=== PATIENT | male | born 1955 | race Caucasian/White ===

== ENCOUNTER 2017-04-03 14:51 | Emergency (ER) | payer MEDICAID, OTHER ==
[~2017-04-03] VITALS: Ht 167.6 cm; Wt 83.8 kg
[2017-04-03 15:06] VITALS: Ht 167.6 cm; Wt 83.8 kg
[2017-04-03] MEDS ORDERED: ONDANSETRON 4 MG INJ IV STA (17:32)
[2017-04-03] MEDS ORDERED: morphine 4 MG/ML VIAL IV STA (17:32)
[2017-04-03 18:45] VITALS: BP 159/71; PULSE 81; RESP 18
[2017-04-03] MEDS ORDERED: LIDOCAINE/MYLANTA 40 ML BTL PO ONE (19:00)
[2017-04-03] MEDS ORDERED: PANTOPRAZOLE 40 MG INJ IV ONE (19:00)
--- NOTE | 2017-04-03 19:09 | RADRPT ---
PROCEDURE: CT Abdomen and Pelvis without contrast. CLINICAL INDICATION: Abdominal pelvic pain. RLQ pain. TECHNIQUE: CT scan of the abdomen and pelvis without contrast was performed on a multi-detector hi gh-resolution CT scanner. The patient was scanned without IV contrast. Coronal and sagittal reformat bharath images were obtained from the axial source images. CTDI equals 15.44 mGy, and DLP equals 870.64 mGy-cm. One or more of the following dose reduction techniques were used: - Automated exposure control. - Adjustment of the mA and/or kV according to patient size. - Use of iterative reconstruction technique. COMPARISON: None. FINDINGS: Lower thorax: Mild scattered scarring along the periphery of the lung bases. Moderate retrocardiac h iatal hernia. Liver: Diffuse fatty infiltration of the liver. No focal mass. Biliary: Normal gallbladder. No biliary dilatation. Pancreas: Mild edema throughout the pancreas consistent with mild pancreatitis. No focal fluid colle ction or abscess is identified. Spleen: Normal. Adrenal Glands: Normal. Genitourinary: Normal. Gastrointestinal: Normal. Lymph nodes: Normal. Vascular: Atherosclerotic vascular calcifications. Peritoneum/mesentery: Normal. No free fluid or free air. Reproductive organs: Significantly enlarged prostate gland impressing upon the base of the bladder. Musculoskeletal: Normal. IMPRESSION: 1. Findings consistent with mild diffuse pancreatitis. 2. No focal fluid collection or abscess is present. 3. Enlarged prostate gland. Correlate with PSA level. 4. Diffuse fatty infiltration of the liver. 5. Moderate retrocardiac hiatal hernia. 6. Scattered benign chronic senescent changes. RPTAT: HMJB .Kem Anne MD, Date Time Electronically viewed and signed by .Kem Anne MD, MD on 04/03/2017 19:09 .B/
[2017-04-03] MEDS ORDERED: HYDR-902 PO (19:32)
[2017-04-03] MEDS ORDERED: ONDA4TAB14 PO (19:32)
--- NOTE | 2017-04-03 19:38 | ERD ---
ER Documentation Chief Complaint Chief Complaint RLQ PAIN W/VOMITTING SINCE AM, SENT BY CLINIC HPI Patient is a 61-year-old male with hypertension who presents with abdominal pain. The patient is right lower quadrant abdominal pain which started today. The pain comes and goes. The patient went to a clinic who sent him to the emergency department for further workup. He has nausea and vomiting. He has had subjective fevers. He has had no treatment as of yet. The pain is sharp in nature. His primary doctor is Dr. Gong. ROS All systems reviewed and are negative except as per history of present illness. Medications Home Meds Active Scripts Ondansetron (Ondansetron Odt) 4 Mg Tab.rapdis, 4 MG PO Q6H Y for NAUSEA AND/OR VOMITING, #10 TAB Prov:JOSR GREEN MD 04/03/17 Hydrocodone/Acetaminophen (B[place]mer 10-325 Tablet) 1 Each Tablet, 1 TAB PO Q6H Y for PAIN, #7 TAB Prov:JOSR GREEN MD 04/03/17 Allergies Allergies: Coded Allergies: No Known Allergy (Unverified , 04/03/17) PMhx/Soc Positive for hypertension FmHx Family History: diabetes Physical Exam Vitals Vital Signs Date Time Temp Pulse Resp B/P Pulse Ox O2 Delivery O2 Flow Rate FiO2 04/03/17 18:45 81 18 159/71 100 Room Air 04/03/17 15:06 97.8 68 20 183/86 98 Physical Exam Const: Moderate distress secondary to abdominal pain Head: Atraumatic Eyes: Normal Conjunctiva ENT: Normal External Ears, Nose and Mouth. Neck: Full range of motion..~ No meningismus. Resp: Clear to auscultation bilaterally Cardio: Regular rate and rhythm, no murmurs Abd: Soft, right lower quadrant tenderness to palpation without rebound or guarding Skin: No petechiae or rashes Back: No midline or flank tenderness Ext: No cyanosis, or edema Neur: Awake and alert Psych: Normal Mood and Affect Result Diagram: 04/03/175 04/03/17 1745 Results 24 hrs Laboratory Tests Test 04/03/17 17:45 White Blood Count 14.410^3/ul Red Blood Count 5.0410^6/ul Hemoglobin 15.2g/dl Hematocrit 45.4% Mean Corpuscular Volume 90.1fl Mean Corpuscular Hemoglobin 30.2pg Mean Corpuscular Hemoglobin Concent 33.5g/dl Red Cell Distribution Width 12.9% Platelet Count 49974^3/UL Mean Platelet Volume 10.8fl Neutrophils % 87.4% Lymphocytes % 9.2% Monocytes % 2.8% Eosinophils % 0.0% Basophils % 0.2% Nucleated Red Blood Cells % 0.0/100WBC Neutrophils # 12.610^3/ul Lymphocytes # 1.310^3/ul Monocytes # 0.410^3/ul Eosinophils # 0.010^3/ul Basophils # 0.010^3/ul Nucleated Red Blood Cells # 0.010^3/ul Prothrombin Time 12.3Sec Prothrombin Time Ratio 1.0 INR International Normalized Ratio 0.91 Activated Partial Thromboplast Time 32.9Sec Urine Color YELLOW Urine Clarity TURBID Urine pH 5.0 Urine Specific [place] 1.026 Urine Ketones NEGATIVEmg/dL Urine Nitrite NEGATIVEmg/dL Urine Bilirubin NEGATIVEmg/dL Urine Urobilinogen 1+mg/dL Urine Leukocyte Esterase NEGATIVELeu/ul Urine Microscopic RBC 4/HPF Urine Microscopic WBC 3/HPF Urine Mucus MANY/HPF Urine Hemoglobin 1+mg/dL Urine Glucose NEGATIVEmg/dL Urine Total Protein 1+mg/dl Sodium Level 141mmol/L Potassium Level 4.4mmol/L Chloride Level 101mmol/L Carbon Dioxide Level 28mmol/L Anion Gap 16 Blood Urea Nitrogen 14mg/dl Creatinine 0.78mg/dl Glucose Level 158mg/dl Calcium Level 9.5mg/dl Total Bilirubin 0.4mg/dl Direct Bilirubin 0.00mg/dl Indirect Bilirubin 0.4mg/dl Aspartate Amino Transf (AST/SGOT) 28IU/L Alanine Aminotransferase (ALT/SGPT) 44IU/L Alkaline Phosphatase 71IU/L Troponin I < 0.012ng/ml Total Protein 8.2g/dl Albumin 4.8g/dl Globulin 3.40g/dl Albumin/Globulin Ratio 1.41 Lipase 99U/L Current Medications Medications (Trade) Dose Ordered Sig/Valerie Route PRN Reason Start Time Stop Time Status Last Admin Dose Admin Morphine Sulfate (morphine) 4 mg ONCE STAT IV 04/03/17 17:32 04/03/17 17:34 DC 04/03/17 18:10 Ondansetron HCl (Zofran Inj) 4 mg ONCE STAT IV 04/03/17 17:32 04/03/17 17:34 DC 04/03/17 18:10 Miscellaneous Medication (Gi Cocktail (2)) 40 ml ONCE ONCE PO 04/03/17 19:00 04/03/17 19:01 DC 04/03/17 19:15 Pantoprazole (Protonix Iv) 40 mg ONCE ONCE IV 04/03/17 19:00 04/03/17 19:01 DC 04/03/17 19:15 Procedures/MDM Smoking Cessation Therapy: Pt. was lectured for greater than 3 minutes on the health risks of continued smoking and the benefits of cessation. PROCEDURE: CT Abdomen and Pelvis without contrast. CLINICAL INDICATION: Abdominal pelvic pain. RLQ pain. TECHNIQUE: CT scan of the abdomen and pelvis without contrast was performed on a multi-detector high-resolution CT scanner. The patient was scanned without IV contrast. Coronal and sagittal reformatted images were obtained from the axial source images. CTDI equals 15.44 mGy, and DLP equals 870.64 mGy-cm. One or more of the following dose reduction techniques were used: - Automated exposure control. - Adjustment of the mA and/or kV according to patient size. - Use of iterative reconstruction technique. COMPARISON: None. FINDINGS: Lower thorax: Mild scattered scarring along the periphery of the lung bases. Moderate retrocardiac hiatal hernia. Liver: Diffuse fatty infiltration of the liver. No focal mass. Biliary: Normal gallbladder. No biliary dilatation. Pancreas: Mild edema throughout the pancreas consistent with mild pancreatitis. No focal fluid collection or abscess is identified. Spleen: Normal. Adrenal Glands: Normal. Genitourinary: Normal. Gastrointestinal: Normal. Lymph nodes: Normal. Vascular: Atherosclerotic vascular calcifications. Peritoneum/mesentery: Normal. No free fluid or free air. Reproductive organs: Significantly enlarged prostate gland impressing upon the base of the bladder. Musculoskeletal: Normal. IMPRESSION: 1. Findings consistent with mild diffuse pancreatitis. 2. No focal fluid collection or abscess is present. 3. Enlarged prostate gland. Correlate with PSA level. 4. Diffuse fatty infiltration of the liver. 5. Moderate retrocardiac hiatal hernia. 6. Scattered benign chronic senescent changes. RPTAT: HMJB .Kem Anne MD, MD Date Time Electronically viewed and signed by .Kem Anne MD, on 04/03/2017 19:09 Patient is a 61-year-old male who presents with abdominal pain. He had a workup which included laboratory studies, urinalysis, and CT scan of the abdomen and pelvis. He had a mild elevation of his white blood cell count. CT scan however showed no sign of appendicitis or bowel obstruction. LFTs and lipase were normal. At this point I doubt appendicitis, cholecystitis, pancreatitis, or bowel obstruction. I believe outpatient management is appropriate but the patient will need close follow-up with his primary doctor Dr. Gong within 24 hours. He will be given a prescription for Bessemer and Zofran for symptomatically relief. Departure Diagnosis: Primary Impression: Abdominal pain Abdominal location: right lower quadrant Qualified Code: R10.31 - Right lower quadrant abdominal pain Condition: Fair Patient Instructions: Abdominal Pain Additional Instructions: Visite a foster naldo louise para un EXAMEN.Regrese a estas instalaciones si no se mejora annabel esperbamos o annabel carlos rices. JOSR GREEN MD Apr 03, 2017 19:38
[2017-04-04] MEDS ORDERED: LISI20TA11 PO (20:17)
[2017-04-04] MEDS ORDERED: NAPR-688 PO (20:17)
[2017-04-04] MEDS ORDERED: ASPI-535 PO (20:17)
[2017-04-04] MEDS ORDERED: LORA10TA3 PO (20:18)
[2017-04-04] MEDS ORDERED: ACET-141 PO (20:19)
== END 2017-04-03 19:58 | disposition home or self-care (01) ==
LOC: E/R 14:51
DX: R10.31 Right lower quadrant pain (principal); I10 Essential (primary) hypertension
CPT/HCPCS: 36415; 74176; 80053; 81001; 83690; 84484; 85025; 85610; 85730; 93005; 96374; 96375; C9113; J2270; J2405; Z7502; Z7610

== ENCOUNTER 2017-04-04 15:52 | Inpatient (IN) | payer MEDICAID ==
[~2017-04-04] VITALS: Ht 170.2 cm; Wt 84.5 kg
[~2017-04-04 15:52] MED LIST: HYDR-902 PO; ONDA4TAB14 PO
[2017-04-04] MEDS ORDERED: SODIUM CHLORIDE 0.9% 1L BAG IV* STA (16:23)
[2017-04-04] MEDS ORDERED: HYDROmorphONE 1 MG/ML SYG IV STA ×2 (16:23→19:55)
[2017-04-04] MEDS ORDERED: ONDANSETRON 4 MG INJ IV STA (16:23)
[2017-04-04] MEDS ORDERED: PIPER-TAZO 3.375 GM IV (PMX) 50 ML IVPB STA (16:23)
[2017-04-04] MEDS ORDERED: VANCOMYCIN 1 GM (PMX) 250 ML IVPB ONE (16:30)
[2017-04-04 16:43] LABS: ABNORMAL IP MESSAGE 1; BASOPHILS % 0.2 % (0.0-2.0); HEMATOCRIT 47.9 % (42.0-52.0); HEMOGLOBIN 16.8 g/dl (14.0-18.0); LYMPHOCYTES # 2.3 10^3/ul (0.8-2.9); LYMPHOCYTES % 12.7 % (15.0-51.0); MEAN CORPUSCULAR HEMOGLOBIN 31.6 pg (29.0-33.0); MEAN CORPUSCULAR HGB CONC 35.1 g/dl (32.0-37.0); MEAN CORPUSCULAR VOLUME 90.2 fl (82.0-101.0); MONOCYTE # 1.5 10^3/ul (0.3-0.9); MONOCYTES % 8.3 % (0.0-11.0); NEUTROPHIL # 14.3 10^3/ul (1.6-7.5); NEUTROPHILS % 78.3 % (39.0-77.0); PLATELET COUNT 255 10^3/UL (140-415); POSITIVE DIFF @See below; RED BLOOD COUNT 5.31 10^6/ul (4.70-6.10); WHITE BLOOD COUNT 18.3 10^3/ul (4.8-10.8)
[2017-04-04 17:01] LABS: INR 1.01; PARTIAL THROMBOPLASTIN TIME 31.9 Sec (25.0-35.0); PROTIME 13.3 Sec (12.2-14.2)
[2017-04-04 17:09] LABS: ALANINE AMINOTRANSFERASE 40 IU/L (13-69); ALBUMIN 4.8 g/dl (3.3-4.9); ALBUMIN/GLOBULIN RATIO 1.33; ALKALINE PHOSPHATASE 80 IU/L (42-121); ANION GAP 20 (8-16); ASPARTATE AMINO TRANSFERASE 24 IU/L (15-46); BILIRUBIN,INDIRECT 0.8 mg/dl (0-1.1); BILIRUBIN,TOTAL 0.8 mg/dl (0.2-1.3); BLOOD UREA NITROGEN 16 mg/dl (7-20); CALCIUM 9.4 mg/dl (8.4-10.2); CARBON DIOXIDE 25 mmol/L (21-31); CHLORIDE 101 mmol/L (97-110); CREATININE 1.33 mg/dl (0.61-1.24); GLUCOSE 181 mg/dl (70-220); POTASSIUM 4.1 mmol/L (3.5-5.1); SODIUM 142 mmol/L (135-144); TOTAL PROTEIN 8.4 g/dl (6.1-8.1)
[2017-04-04 17:21] LABS: TROPONIN-I < 0.012 ng/ml (0.00-0.12)
--- NOTE | 2017-04-04 17:33 | RADRPT ---
PROCEDURE: XR Chest. CLINICAL INDICATION: Shortness of breath. TECHNIQUE: A single portable view of the chest was obtained. COMPARISON: None FINDINGS: The cardiomediastinal silhouette is within normal limits. The right hemidiaphragm is elevated with r ight basilar atelectasis. The remaining lungs and pleural spaces are clear. The soft tissues and os seous structures are unremarkable. IMPRESSION: Elevated right hemidiaphragm with right basilar atelectasis. RPTAT: HPNM Physician Gina Date Time Electronically viewed and signed by Emir Ji Physician on 04/04/2017 17:32 /
[2017-04-04] MEDS ORDERED: SOD CHLORIDE 0.9% 100 ML ONE (18:04)
[2017-04-04] MEDS ORDERED: IODIXANOL LOCM 100 ML BTL ONE (18:05)
--- NOTE | 2017-04-04 19:15 | RADRPT ---
PROCEDURE: CT of the abdomen and pelvis CLINICAL INDICATION: Abdominal pain TECHNIQUE: The study was performed utilizing a GE Xylopeed 64-slice multidetector CT scanner. Dir ect spiral axial sections were obtained through the abdomen and pelvis with intravenous contrast. Af ter administration of 100cc of Visipaque 320, postcontrast images were obtained. Coronal and sagitt al reformatted images were performed. The CTDI vol is 14.36 mGy and the DLP is 914.59 mGy-cm. The i mages were reviewed on a PACS workstation. One or more of the following dose reduction techniques were used: Automated exposure control. Adjustment of the mA and/or kV according to patient size. Use of iterative reconstruction technique. COMPARISON: 04/03/2017 FINDINGS: CT abdomen: 9 atelectasis in the lung bases is seen. The remaining lung bases are clear. The heart is not enlarged. No pericardial effusion is seen. The liver is normal in size and contour. Fatty infiltration of the liver is seen. A 5 mm low attenua tion lesion left lobe is seen which is too small to characterize but may represent a cyst. No other focal liver lesions or intrahepatic biliary dilatation is seen. The gallbladder is normal. No common bile duct dilatation is seen. The spleen, pancreas, and adrenal glands are unremarkable in appeara nce. The kidneys are normal in size and contour enhance normally. No evidence of hydronephrosis or nephrolithiasis is seen. A moderate size hiatal hernia is again seen. The remainder of the stomach is otherwise unremarkable. Mild to mildly distended fluid filled small bowel in the left upper quadrant left lower quadrant i s seen with mucosal fold thickening. Descending colon diverticulosis without evidence of diverticuli tis. The remainder of the small and large bowel are otherwise unremarkable in course and caliber. T he appendix is enlarged and fluid-filled. Inflammatory changes in the periappendiceal region is seen . In addition, free fluid in the right paracolic gutter is seen. No enlarged lymph nodes are seen. T he aorta is normal in caliber. CT pelvis: No pelvic mass, adenopathy, or focal fluid collection is seen. There is a small amount of free fluid. The urinary bladder is normal. The prostate is again noted to be enlarged. No osseou s lesions are seen. IMPRESSION: 1. Acute appendicitis as described above. 2. Small amount of free fluid in the pelvis and right paracolic gutter. 3. Fatty infiltration of the liver. 4. Descending colon diverticulosis without evidence of diverticulitis. 5. Moderate size hiatal hernia again seen. RPTAT: HPNM Emir Ji Physician Date Time Electronically viewed and signed by Emir Ji, Physician on 04/04/2017 19:15 /
[2017-04-04] MEDS ORDERED: SOD CHLORIDE 0.45% 1,000 ML IV SCH ×2 (19:24→21:30)
[2017-04-04] MEDS ORDERED: hydrALAzine 20 MG INJ IV PRN (19:30)
[2017-04-04] MEDS ORDERED: morphine 2 MG INJ IV PRN (19:30)
[2017-04-04] MEDS ORDERED: ACETAMINOPHEN 325 MG TAB PO PRN ×2 (19:30)
[2017-04-04] MEDS ORDERED: ONDANSETRON 4 MG INJ IV PRN (19:30)
[2017-04-04] MEDS ORDERED: NITROGLYCERIN (SL) 0.4 MG TAB SL PRN (19:30)
[2017-04-04] MEDS ORDERED: ALBUTEROL/IPRATROPIUM (NEB) 3 ML AMP HHN PRN (19:30)
[2017-04-04] MEDS ORDERED: NA PHOSPHATE/BIPHOS 133 ML ENEMA PR PRN (19:30)
[2017-04-04] MEDS ORDERED: LORAZEPAM 2 MG INJ IV PRN (19:30)
[2017-04-04] MEDS ORDERED: DOCUSATE SODIUM 100 MG CAP PO PRN (19:30)
[2017-04-04] MEDS ORDERED: HYDROCODONE/APAP (5/325) TAB PO PRN (19:30)
[2017-04-04] MEDS ORDERED: MAGNESIUM HYDROXIDE 30ML CUP PO PRN (19:30)
[2017-04-04] MEDS ORDERED: NACL 0.9% 3 ML SYG IV SCH (19:30)
[2017-04-04] MEDS ORDERED: morphine 2 MG INJ ONE (19:45)
[2017-04-04] MEDS ORDERED: LISI20TA11 PO (20:17)
[2017-04-04] MEDS ORDERED: NAPR-688 PO (20:17)
[2017-04-04] MEDS ORDERED: ASPI-535 PO (20:17)
[2017-04-04] MEDS ORDERED: LORA10TA3 PO (20:18)
[2017-04-04] MEDS ORDERED: ACET-141 PO (20:19)
[2017-04-04 20:36] VITALS: BP 141/76; RESP 19
[2017-04-04 20:40] VITALS: BP 145/80; PULSE 128; RESP 20
--- NOTE | 2017-04-04 20:43 | ERD ---
ER Documentation Chief Complaint Chief Complaint RLQ PAIN RAD INTO LLQ AND BACK W DIAPHORESIS, N/V HPI Patient is a 61-year-old male who presents with abdominal pain. The patient was seen yesterday for abdominal pain and had a workup with laboratory studies and CT scan which showed an elevated white blood cell count but no signs of appendicitis at that time. However the pain today got worse and is sharp in nature and constant. He is sweating and has chills. He has not been eating today. He tried Slick which I prescribed him yesterday without help. Upon review of old medical records the patient had one previous visit yesterday for abdominal pain. His primary doctor is Dr. Gong. ROS All systems reviewed and are negative except as per history of present illness. Medications Home Meds Active Scripts Ondansetron (Ondansetron Odt) 4 Mg Tab.rapdis, 4 MG PO Q6H Y for NAUSEA AND/OR VOMITING, #10 TAB Prov:JOSR GREEN MD 04/03/17 Hydrocodone/Acetaminophen (Slick 10-325 Tablet) 1 Each Tablet, 1 TAB PO Q6H Y for PAIN, #7 TAB Prov:JOSR GREEN MD 04/03/17 Reported Medications Acetaminophen* (Acetaminophen*) 500 MG Extra Strength Tablet, 500 MG PO Q4H Y for PAIN AND OR ELEVATED TEMP, TAB 04/04/17 Loratadine* (Loratadine*) 10 Mg Tablet, 10 MG PO DAILY for ALLERGIC REACTION, # 30 TAB 04/04/17 Aspirin Ec (Aspir 81) 81 Mg Tablet.dr, 81 MG PO DAILY, #30 TAB 04/04/17 Naproxen* (Naproxen*) 500 Mg Tablet, 500 MG PO BID Y for PAIN, TAB 04/04/17 Lisinopril* (Lisinopril*) 20 Mg Tablet, 20 MG PO QHS, #30 TAB 04/04/17 Allergies Allergies: Coded Allergies: No Known Allergy (Unverified , 04/04/17) PMhx/Soc Medical and Surgical Hx: pt denies Medical Hx, pt denies Surgical Hx Hx Alcohol Use: No Hx Substance Use: No Hx Tobacco Use: No Smoking Status: Never smoker FmHx Family History: No diabetes Physical Exam Vitals Vital Signs Date Time Temp Pulse Resp B/P Pulse Ox O2 Delivery O2 Flow Rate FiO2 04/04/17 18:07 107 24 153/80 99 Room Air 04/04/17 16:30 Nasal Cannula 2 04/04/17 15:59 98.1 111 20 151/88 95 Physical Exam Const: Moderate distress secondary to pain Head: Atraumatic Eyes: Normal Conjunctiva ENT: Normal External Ears, Nose and Mouth. Neck: Full range of motion..~ No meningismus. Resp: Clear to auscultation bilaterally Cardio: Tachycardic rate without murmur Abd: Diffuse abdominal pain with rebound and guarding Skin: No petechiae or rashes Back: No midline or flank tenderness Ext: No cyanosis, or edema Neur: Awake and alert Psych: Normal Mood and Affect Result Diagram: 04/04/17 1620 04/04/17 1620 Results 24 hrs Laboratory Tests Test 04/04/17 16:20 04/04/17 16:27 04/04/17 18:30 White Blood Count 18.310^3/ul Red Blood Count 5.3110^6/ul Hemoglobin 16.8g/dl Hematocrit 47.9% Mean Corpuscular Volume 90.2fl Mean Corpuscular Hemoglobin 31.6pg Mean Corpuscular Hemoglobin Concent 35.1g/dl Red Cell Distribution Width 13.0% Platelet Count 30843^3/UL Mean Platelet Volume 11.0fl Neutrophils % 78.3% Lymphocytes % 12.7% Monocytes % 8.3% Eosinophils % 0.0% Basophils % 0.2% Nucleated Red Blood Cells % 0.0/100WBC Neutrophils # 14.310^3/ul Lymphocytes # 2.310^3/ul Monocytes # 1.510^3/ul Eosinophils # 0.010^3/ul Basophils # 0.010^3/ul Nucleated Red Blood Cells # 0.010^3/ul Prothrombin Time 13.3Sec Prothrombin Time Ratio 1.0 INR International Normalized Ratio 1.01 Activated Partial Thromboplast Time 31.9Sec Sodium Level 142mmol/L Potassium Level 4.1mmol/L Chloride Level 101mmol/L Carbon Dioxide Level 25mmol/L Anion Gap 20 Blood Urea Nitrogen 16mg/dl Creatinine 1.33mg/dl Glucose Level 181mg/dl Calcium Level 9.4mg/dl Total Bilirubin 0.8mg/dl Direct Bilirubin 0.00mg/dl Indirect Bilirubin 0.8mg/dl Aspartate Amino Transf (AST/SGOT) 24IU/L Alanine Aminotransferase (ALT/SGPT) 40IU/L Alkaline Phosphatase 80IU/L Troponin I < 0.012ng/ml Total Protein 8.4g/dl Albumin 4.8g/dl Globulin 3.60g/dl Albumin/Globulin Ratio 1.33 Lactic Acid Level 3.0mmol/L 2.0mmol/L Free Thyroxine 1.17ng/dl Current Medications Medications (Trade) Dose Ordered Sig/Valerie Route PRN Reason Start Time Stop Time Status Last Admin Dose Admin Sodium Chloride 2580 ml 2,580 ml BOLUS OVER 2 HOURS STAT IV* 04/04/17 16:23 04/04/17 16:25 DC 04/04/17 16:42 Vancomycin HCl 250 ml @ 125 mls/hr ONCE ONCE IVPB 04/04/17 16:30 04/04/17 18:29 DC 04/04/17 16:44 Piperacillin Sod/ Tazobactam Sod (Zosyn 3.375gm/ 50 ml (Pmx)) 50 ml @ 100 mls/hr ONCE STAT IVPB 04/04/17 16:23 04/04/17 16:52 DC 04/04/17 19:04 Hydromorphone HCl (Dilaudid) 1 mg ONCE STAT IV 04/04/17 16:23 04/04/17 16:25 DC 04/04/17 16:41 Ondansetron HCl (Zofran Inj) 4 mg ONCE STAT IV 04/04/17 16:23 04/04/17 16:25 DC 04/04/17 16:40 IV Flush 10 ml 10 ml STK-MED ONCE .ROUTE 04/04/17 18:04 04/04/17 18:05 DC 04/04/17 18:45 Sodium Chloride (NS) 100 ml @ ud STK-MED ONCE .ROUTE 04/04/17 18:04 04/04/17 18:05 DC 04/04/17 18:45 Iodixanol (Visipaque Locm) 100 ml STK-MED ONCE .ROUTE 04/04/17 18:05 04/04/17 18:06 DC 04/04/17 18:45 Procedures/MDM CT of the abdomen pelvis shows acute appendicitis per radiology. EKG read by me: Rate/Rhythm: Regular rate and rhythm at a tachycardic rate Intervals: Normal Impression: Tachycardia without ischemia Chest x-ray shows no pneumonia or pneumothorax per radiology. Admit MDM: Patient's infectious symptoms have not stabilized and the patient is at risk of rapid decompensation. The patient will be admitted for careful hydration, antibiotic therapy, and infectious source control. Severe Sepsis criteria: Infectious source: Appendicitis End organ damage indicated by: Lactate greater than 2 Sepsis Management: Time of recognition of sepsis: Upon arrival Within 3 hours of recognition: Blood cultures x 2 before broad-spectrum antibiotics: Yes 30 ml/kg NS bolus Completed Initial lactate 3.0 Repeat lactate 2.0 showing successful resuscitation Time of recognition of septic shock: No septic shock Septic Shock Assessment: Any lactic acid > 4.0 No Persistent hypotension (SBP < 90 or 40 mmHg drop, MAP < 65) despite 30 mL/kg IV fluid bolus No Volume Re-assessment for Septic Shock (post 30 ml/kg bolus): No septic shock at this time Persistent Hypotension Treatment: Comfort care No Central line Not Required Vasopressor started Not required I considered further perfusion assessment with CVP measurement, SCVO2, bedside ultrasound volume assessment, passive leg raise, trial of further fluid bolus. And proceeded with 30 ml/kg fluid bolus of NSS, broad spectrum antibiotics, and admission. The patient will also need his appendix removed and I spoke with Dr. Ch from general surgery who is the surgeon on-call. Dr. Ch will see the patient and likely perform surgery tomorrow morning. Accepting Care Team Current data and ongoing care discussed. Admitting Physician: Panel team for admission Dr. [address] Consultant(s): Dr. Ch who is a surgeon on-call Outstanding Data: Culture results Critical Care: Critical care time 35 minutes excluding all billable procedures Emergent fluid management while maintaining close respiratory support. Provision of immediate and broad-spectrum antibiotic therapy. Simultaneous assessment for possible sources in order to direct targeted therapy. Consideration for invasive and chemical support to prevent cardiopulmonary collapse. Departure Diagnosis: Primary Impression: Severe sepsis Additional Impressions: Abdominal pain Abdominal location: right lower quadrant Qualified Code: R10.31 - Right lower quadrant abdominal pain Appendicitis Appendicitis type: acute appendicitis Acute appendicitis type: with generalized peritonitis Qualified Code: K35.2 - Acute appendicitis with generalized peritonitis Condition: Serious JOSR GREEN MD Apr 04, 2017 20:43
[2017-04-04] MEDS: HEPARIN 5,000 UNIT/0.5 ML VIAL SC SCH (21:17)
[2017-04-04 21:20] VITALS: Ht 170.2 cm; Wt 84.5 kg
[2017-04-04] MEDS ORDERED: SOD CHLORIDE 0.9% 1,000 ML IV ONE (21:30)
[2017-04-04 23:30] VITALS: BP 109/65; PULSE 102; RESP 20
[2017-04-04] MEDS: PIPER-TAZO 3.375 GM IV (PMX) 50 ML IVPB SCH (23:46)
[2017-04-04] MEDS: DEXTROSE 5%-0.45% NACL 1,000 ML IV SCH (23:46)
[2017-04-05] VITALS (18 sets, daily range): BP systolic 106–149; BP diastolic 60–76; PULSE 92–110; RESP 12–23
[2017-04-05] MEDS: PIPER-TAZO 3.375 GM IV (PMX) 50 ML IVPB SCH ×4 (05:21→23:47)
[2017-04-05 05:52] LABS: ABNORMAL IP MESSAGE 1; HEMOGLOBIN 14.1 g/dl (14.0-18.0); MEAN CORPUSCULAR HEMOGLOBIN 30.6 pg (29.0-33.0); MEAN CORPUSCULAR HGB CONC 33.6 g/dl (32.0-37.0); MEAN CORPUSCULAR VOLUME 91.1 fl (82.0-101.0); MEAN PLATELET VOLUME 11.1 fl (7.4-10.4); PLATELET COUNT 167 10^3/UL (140-415); POSITIVE DIFF @See below; RED BLOOD COUNT 4.61 10^6/ul (4.70-6.10); RED CELL DISTRIBUTION WIDTH 13.2 % (11.5-14.5); WHITE BLOOD COUNT 11.8 10^3/ul (4.8-10.8)
[2017-04-05 06:37] LABS: CHOL/HDL RATIO 2.1 RATIO
[2017-04-05 06:43] LABS: CALCIUM 8.3 mg/dl (8.4-10.2); CREATININE 1.01 mg/dl (0.61-1.24); MAGNESIUM 1.7 mg/dl (1.7-2.5); PHOSPHORUS 2.5 mg/dl (2.5-4.9); POTASSIUM 3.9 mmol/L (3.5-5.1)
--- NOTE | 2017-04-05 06:54 | HP ---
Date/Time of Note Date/Time of Note DATE: 04/05/17 TIME: 06:46 Assessment/Plan VTE Prophylaxis VTE Prophylaxis Intervention: SCD's Lines/Catheters IV Catheter Type (from Nrs): Peripheral IV Urinary Cath still in place: No Assessment/Plan Assessment/Plan 1. Acute appendicitis Keep n.p.o. with IV fluid Pain management Awaiting surgical evaluation 2. Sepsis, as evidenced by fever and leukocytosis, secondary to above Keep n.p.o. IV antibiotic 3. History of hypertension IV antihypertensives as needed for now while n.p.o. HPI/ROS Admit Date/Time Admit Date/Time Apr 04, 2017 at 19:21 Hx of Present Illness This is a 61-year-old male with history of hypertension who presented to the emergency department with abdominal pain. Patient was seen in the ER for abdominal pain yesterday. CT abdomen/pelvis was read as mild pancreatitis, enlarged prostate, hiatal hernia and fatty liver. Patient is now returning back was much more worsening abdominal pain, fever, nausea/vomiting and diaphoresis. When he presented to the ER he was in distress and was diaphoretic. Repeat CT scan of abdomen pelvis today shows acute appendicitis. He was febrile with a temperature of 102 and white count was 18,000. PMH/Family/Social Social History Smoking Status: Current every day smoker Exam/Review of Systems Vital Signs Vitals Vital Signs Date Time Temp Pulse Resp B/P Pulse Ox O2 Delivery O2 Flow Rate FiO2 04/05/17 06:07 98.7 92 04/05/17 02:02 2.0 04/05/17 01:40 18 106/62 99 Nasal Cannula Intake and Output 04/04/17 04/04/17 04/05/17 15:00 23:00 07:00 Intake Total 250 ml 1600 ml Output Total 250 ml Balance 250 ml 1350 ml Exam Constitutional: alert, oriented Head: atraumatic, normocephalic Eyes: EOMI, PERRL Respiratory: clear to auscultation, normal air movement Cardiovascular: nl pulses, regular rate and rhythm Gastrointestinal: soft, tender Extremities: normal pulses Labs Result Diagram: 04/05/17 0505 04/04/17 1620 Medications Medications Current Medications Ondansetron HCl (Zofran Inj) 4 mg Q6H PRN IV NAUSEA AND/OR VOMITING; Start 04/04/17 at 19:30 Acetaminophen (Tylenol Tab) 650 mg Q6H PRN PO PAIN LEVEL 1-3 OR FEVER Last administered on 04/04/17 21:09; Admin Dose 650 MG; Start 04/04/17 at 19:30 Acetaminophen/ Hydrocodone Bitart (Teller (5/325)) 1 tab Q6H PRN PO MODERATE PAIN LEVEL 4-6; Start 04/04/17 at 19:30 Morphine Sulfate (morphine) 2 mg Q4H PRN IV SEVERE PAIN LEVEL 7-10; Start 04/04 at 19:30 Docusate Sodium (Colace) 100 mg Q12H PRN PO CONSTIPATION; Start 04/04/17 at 19: 30 Magnesium Hydroxide (Milk Of Mag) 30 ml DAILY PRN PO CONSTIPATION; Start at 19:30 Sodium Biphosphate/ Sodium Phosphate (Fleet Enema) 133 ml DAILY PRN ND CONSTIPATION; Start 04/04/17 at 19:30 Heparin Sodium (Porcine) (Heparin (5000 Units/0.5 ml)) 5,000 unit Q12 SC Last administered on 04/04/17 21:17; Admin Dose 5,000 UNIT; Start 04/04/17 at 21:00 Lorazepam (Ativan) 0.5 mg Q6H PRN IV ANXIETY; Start 04/04/17 at 19:30 Hydralazine HCl (Apresoline) 10 mg Q6H PRN IV ELEVATED BLOOD PRESSURE; Start 04/04/17 at 19:30 Nitroglycerin 1 tab 1 tab Q5M PRN SL ANGINA; Start 04/04/17 at 19:30 Piperacillin Sod/ Tazobactam Sod 50 ml @ 100 mls/hr Q6 IVPB Last administered on 04/05/17 05:21; Admin Dose 100 MLS/HR; Start 04/05/17 at 00:00 Dextrose/Sodium Chloride (D5-1/2ns) 1,000 ml @ 100 mls/hr Q10H IV Last administered on 04/04/17 23:46; Admin Dose 100 MLS/HR; Start 04/05/17 at 00:00 MALA ARZOLA MD Apr 05, 2017 06:54
[2017-04-05 07:06] LABS: THYROID STIMULATING HORMONE 0.693 MIU/L (0.465-4.680)
[2017-04-05] MEDS: HEPARIN 5,000 UNIT/0.5 ML VIAL SC SCH (09:00)
[2017-04-05] MEDS ORDERED: LEVOFLOXACIN 750MG/D5W (PMX) 150 ML IVPB SCH (09:00)
[2017-04-05] MEDS ORDERED: BUPIVACAINE 0.5%/EPI (SDV) 30 ML INJ ONE (09:02)
--- NOTE | 2017-04-05 09:10 | CONS ---
Date/Time of Note Date/Time of Note DATE: 04/05/17 TIME: 09:10 Assessment/Plan Assessment/Plan Additional Assessment/Plan [facility] IN[facility]IENT CONSULTATION NOTE DATE OF SERVICE: 04/05/2017 PLACE OF SERVICE: [facility], preoperative area ASSESSMENT AND PLAN: A very-pleasant 61-year-old gentleman with comorbidity of BMI 29.2 and hypertension and others, presenting with acute appendicitis supported by his history and physical, elevated white blood cell count and CT findings. I recommended laparoscopic, possible open appendectomy and reviewed the operation in detail as well as the risks, benefits and alternatives with the patient and his . Answered all questions. Patient and family appear to understand and agreed with plans. With above assessment, I've recommended the followin. To the operating room for above Thank you very much for having me involved in the care of this very pleasant patient and wonderful family. If you have any questions, please feel free to contact me at [phone]. Nature of presenting problem: High severity Please note that, given the limited number of diagnoses or management options, the limited amount and/or complexity of data needed to be reviewed, and I risk of complications and/or morbidity or mortality, this qualifies as moderate complexity type of decision-making. Disclaimers: 1. Inadvertent spelling and grammatical errors are likely due to electronic health record (EHR)/dictation software used and do not reflect on the quality of delivered patient care. 2. The electronic timestamp recorded on this note does not necessarily reflect the actual date and time of the visit or the service. 3. Portions of this note may have been created through electronic templates and computer algorithms that might bring in information either from the system or from other physicians and providers. Please note that such information may or may not contain errors, the occurrence of which are outside of my control. In general (but not always) this happens either in the beginning or at the end of the note. The portion of the note that I have created are generally done in 1 continuous block of text, flanked at the beginning and at the end by " ", and entered into one field in the EHR. 4. There may be other unanticipated errors in the note that are outside of my control. I can only attest to the portions of the note that I have created. Updated clinical summary: A very-pleasant 61-year-old gentleman with comorbidity of BMI 29.2 and hypertension, presenting with acute appendicitis supported by his history and physical, elevated white blood cell count and CT findings. Comorbidities: 1. BMI 29.2 2. Hypertension 3. Hiatal hernia 4. Enlarged prostate 5. Fatty infiltration of the liver 5. Descending colon diverticulosis without evidence of diverticulitis CONSULTATION REQUESTED BY: Cristy Bee MD HISTORY OF PRESENT ILLNESS: The patient is a very pleasant 61-year-old gentleman with above-mentioned comorbidities whom we were kindly asked consult regarding management of likely acute appendicitis. The patient had pain for a number of days and was recently seen in our emergency department where workup was done and the patient was discharged home. He represented to the emergency department last night with more pain and his white blood cell count was found to be more elevated and a CT scan with IV contrast was done which demonstrated evidence for acute nonperforated appendicitis. Associated fever, nausea and vomiting and diaphoresis was present. Temperature was recorded as high as 102. White blood cell count 18,000. ALLERGIES: NO KNOWN DRUG ALLERGIES MEDICATIONS Documented in the electronic records and reviewed by me. Please see the electronic records for details, as well as details for inpatient medications which were also reviewed by me. SOCIAL HISTORY: The patient lives with family. + Tob (currently every day); - ETOH; - IVDU FAMILY HISTORY: There are no significant medical, surgical or oncologic issues in the family as reported by the patient or reflected in the chart. REVIEW OF SYSTEMS: Other than mentioned above, there were no other pertinent positives or pertinent negatives in an otherwise complete 14 point review of systems. PHYSICAL EXAMINATION GENERAL: The patient appears to be a very pleasant gentleman of descent lying in bed, appearing stated age, and otherwise in no acute distress. BMI: 29.2 VITAL SIGNS: AVSS (please also see auto important data if available as well as the electronic records) HEENT: Normocephalic and atraumatic. Extraocular muscles and hearing are grossly intact bilaterally and symmetrically. Sclerae are nonicteric. Oral cavity is clear; oral mucosa appear to be pink and moist. Dentition: fair. NECK: Supple. There is no lymphadenopathy or JVD. There is no submental, submandibular or supraclavicular lymphadenopathy. CHEST: Rises symmetrically with each breath; patient is breathing comfortably. There are no audible wheezes, rales or rhonchi on the gross exam. HEART: Pulse is regular and palpable on the right wrist. Capillary refill is normal. Carotid pulses are palpable bilaterally and symmetrically in the neck. EXTREMITIES: Lower extremities contain no pitting edema around the ankles bilaterally and symmetrically. ABDOMEN: Abdomen is soft, significantly tender to palpation in the right lower quadrant and protuberant with mild to moderate distention. No evidence of ascites, organomegaly, caput medusae, engorged subcutaneous veins, or other abnormalities. There are mild peritoneal signs and guarding. SKIN: Appears to be pink and feels warm to touch. NEUROLOGIC: Awake, alert, and follows commands appropriately. LABORATORY DATA: See below IMAGING: See electronic chart. Please note that I've personally reviewed all pertinent available images and I agree in general with their overall reported findings. Consultation Date/Type/Reason Admit Date/Time Apr 04, 2017 at 19:21 Social History Smoking Status: Current every day smoker Exam/Review of Systems Vital Signs Vitals Vital Signs Date Time Temp Pulse Resp B/P Pulse Ox O2 Delivery O2 Flow Rate FiO2 04/05/17 07:44 2.0 04/05/17 07:43 100.1 96 18 120/60 97 04/05/17 01:40 Nasal Cannula Intake and Output 04/04/17 04/04/17 04/05/17 15:00 23:00 07:00 Intake Total 250 ml 1600 ml Output Total 450 ml Balance 250 ml 1150 ml Results Result Diagram: 04/05/17 0505 04/05/17 0505 Results 24 hrs Laboratory Tests Test 04/04/17 16:20 04/04/17 16:27 04/04/17 18:30 04/04/17 20:55 White Blood Count 18.3 #H Red Blood Count 5.31 Hemoglobin 16.8 Hematocrit 47.9 Mean Corpuscular Volume 90.2 Mean Corpuscular Hemoglobin 31.6 Mean Corpuscular Hemoglobin Concent 35.1 Red Cell Distribution Width 13.0 Platelet Count 255 # Mean Platelet Volume 11.0 H Neutrophils % 78.3 H Lymphocytes % 12.7 L Monocytes % 8.3 Eosinophils % 0.0 Basophils % 0.2 Nucleated Red Blood Cells % 0.0 Neutrophils # 14.3 H Lymphocytes # 2.3 Monocytes # 1.5 H Eosinophils # 0.0 Basophils # 0.0 Nucleated Red Blood Cells # 0.0 Prothrombin Time 13.3 Prothrombin Time Ratio 1.0 INR International Normalized Ratio 1.01 Activated Partial Thromboplast Time 31.9 Sodium Level 142 Potassium Level 4.1 Chloride Level 101 Carbon Dioxide Level 25 Anion Gap 20 H Blood Urea Nitrogen 16 Creatinine 1.33 H Glucose Level 181 Calcium Level 9.4 Total Bilirubin 0.8 Direct Bilirubin 0.00 Indirect Bilirubin 0.8 Aspartate Amino Transf (AST/SGOT) 24 Alanine Aminotransferase (ALT/SGPT) 40 Alkaline Phosphatase 80 Troponin I < 0.012 Total Protein 8.4 H Albumin 4.8 Globulin 3.60 H Albumin/Globulin Ratio 1.33 Lactic Acid Level 3.0 *H 2.0 3.0 *H Free Thyroxine 1.17 Test 04/05/17 01:21 04/05/17 05:05 Lactic Acid Level 1.7 2.0 White Blood Count 11.8 #H Red Blood Count 4.61 L Hemoglobin 14.1 Hematocrit 42.0 Mean Corpuscular Volume 91.1 Mean Corpuscular Hemoglobin 30.6 Mean Corpuscular Hemoglobin Concent 33.6 Red Cell Distribution Width 13.2 Platelet Count 167 # Mean Platelet Volume 11.1 H Neutrophils % Lymphocytes % Monocytes % Eosinophils % Basophils % Nucleated Red Blood Cells % 0.0 Neutrophils # Lymphocytes # Monocytes # Eosinophils # Basophils # Nucleated Red Blood Cells # Sodium Level 143 Potassium Level 3.9 Chloride Level 108 Carbon Dioxide Level 28 Anion Gap 11 # Blood Urea Nitrogen 19 Creatinine 1.01 Glucose Level 136 # Hemoglobin A1c 5.7 Calcium Level 8.3 L Phosphorus Level 2.5 Magnesium Level 1.7 Triglycerides Level 56 Cholesterol Level 81 L LDL Cholesterol, Calculated 32 HDL Cholesterol 38 Cholesterol/HDL Ratio 2.1 Thyroid Stimulating Hormone (TSH) 0.693 Medications Medications Current Medications Ondansetron HCl (Zofran Inj) 4 mg Q6H PRN IV NAUSEA AND/OR VOMITING; Start 04/04/17 at 19:30 Acetaminophen (Tylenol Tab) 650 mg Q6H PRN PO PAIN LEVEL 1-3 OR FEVER Last administered on 04/04/17t 21:09; Admin Dose 650 MG; Start 04/04/17 at 19:30 Acetaminophen/ Hydrocodone Bitart ([place] (5/325)) 1 tab Q6H PRN PO MODERATE PAIN LEVEL 4-6; Start 04/04/17 at 19:30 Morphine Sulfate (morphine) 2 mg Q4H PRN IV SEVERE PAIN LEVEL 7-10; Start 04/04 at 19:30 Docusate Sodium (Colace) 100 mg Q12H PRN PO CONSTIPATION; Start 04/04/17 at 19: 30 Magnesium Hydroxide (Milk Of Mag) 30 ml DAILY PRN PO CONSTIPATION; Start at 19:30 Sodium Biphosphate/ Sodium Phosphate (Fleet Enema) 133 ml DAILY PRN MD CONSTIPATION; Start 04/04/17 at 19:30 Heparin Sodium (Porcine) (Heparin (5000 Units/0.5 ml)) 5,000 unit Q12 SC Last administered on 04/04/17 21:17; Admin Dose 5,000 UNIT; Start 04/04/17 at 21:00 Lorazepam (Ativan) 0.5 mg Q6H PRN IV ANXIETY; Start 04/04/17 at 19:30 Hydralazine HCl (Apresoline) 10 mg Q6H PRN IV ELEVATED BLOOD PRESSURE; Start 04/04/17 at 19:30 Nitroglycerin 1 tab 1 tab Q5M PRN SL ANGINA; Start 04/04/17 at 19:30 Piperacillin Sod/ Tazobactam Sod 50 ml @ 100 mls/hr Q6 IVPB Last administered on 04/05/17 05:21; Admin Dose 100 MLS/HR; Start 04/05/17 at 00:00 Dextrose/Sodium Chloride (D5-1/2ns) 1,000 ml @ 100 mls/hr Q10H IV Last administered on 04/04/17 23:46; Admin Dose 100 MLS/HR; Start 04/05/17 at 00:00 LENORA ROSARIO M.D. Apr 05, 2017 09:10
--- NOTE | 2017-04-05 09:10 | HPN ---
Date/Time of Note Date/Time of Note DATE: 04/05/17 TIME: 09:10 Interval H&P Admission Note Pt. seen H&P reviewed: No system changes Pt. seen H&P reviewed. No system changes (I attest that I have seen and examined the patient and reviewed the operation in detail, as well as its risks , benefits and alternatives of the operation). I attest that I have seen and examined the patient and reviewed in detail the operation, and its associated risks, benefits and alternative. I have answered all the patient's questions to the best of my ability and the patient wishes to proceed. Please refer to rest of electronic medical record for additional updates. LENORA ROSARIO M.D. Apr 05, 2017 09:10
[2017-04-05 09:11] LABS: MONOCYTES % (M) 7 % (0-11); PLATELET ESTIMATE NORMAL; POLYCHROMASIA 1+ (0-0); REACTIVE LYMPHOCYTES% (M) 1 % (0-0)
[2017-04-05] MEDS: DEXTROSE 5%-0.45% NACL 1,000 ML IV SCH (09:17)
[2017-04-05] MEDS ORDERED: NEOSTIGMINE 3 MG/3 ML SYRINGE ONE (09:27)
[2017-04-05] MEDS ORDERED: MIDAZOLAM 1 MG/ML 2 ML INJ ONE (09:27)
[2017-04-05] MEDS ORDERED: DEXAMETHASONE 4 MG/ML 1 ML INJ ONE (09:27)
[2017-04-05] MEDS ORDERED: FENTAnyl 50 MCG/ML VIAL ONE (09:27)
[2017-04-05] MEDS ORDERED: GLYCOPYRROLATE 0.4 MG INJ ONE (09:27)
[2017-04-05] MEDS ORDERED: ROCURONIUM 50 MG INJ ONE (09:27)
[2017-04-05] MEDS ORDERED: PROPOFOL 20 ML ONE (09:27)
[2017-04-05] MEDS ORDERED: LIDOCAINE 2% (SDV) 5 ML INJ ONE (09:27)
[2017-04-05] MEDS ORDERED: ONDANSETRON 4 MG INJ ONE (09:28)
[2017-04-05] MEDS ORDERED: BUPIVACAINE 0.25% (MPF) 30 ML INJ ONE (09:48)
[2017-04-05] MEDS ORDERED: PIPER-TAZO 3.375 GM IV (PMX) 100 ML ONE (10:02)
[2017-04-05] MEDS ORDERED: SUGAMMADEX SODIUM 200 MG/2 ML VIAL IV ONE (10:09)
[2017-04-05] MEDS ORDERED: SUCCINYLCHOLINE CHLORIDE 100 MG/5 ML SYG IV ONE (10:49)
--- NOTE | 2017-04-05 11:16 | OPR ---
Date/Time of Note Date/Time of Note DATE: 04/05/17 TIME: 11:15 Operative Report Preoperative Diagnosis n Postoperative Diagnosis n Surgeon see signature line Marketing Services Manager n Anesthesia Type: other Estimated Blood Loss: other Transfusion none Specimen n Grafts/Implants none Complications none Procedure Description [facility]IENT [facility]PER[facility] PLACE OF SERVICE: [facility] DATE OF SURGERY: 04/05/2017 PREOPERATIVE DIAGNOSIS: 1. Acute appendicitis 2. BMI 29.2 3. Hypertension 4. Enlarged prostate 5. Fatty infiltration of the liver 5. Descending colon diverticulosis without evidence of diverticulitis 6. Hiatal hernia POSTOPERATIVE DIAGNOSIS: 1. Acute appendicitis, with perforation and presence of feculent peritonitis 2. BMI 29.2 3. Hypertension 4. Enlarged prostate 5. Fatty infiltration of the liver 5. Descending colon diverticulosis without evidence of diverticulitis 6. Hiatal hernia OPERATION: 1. Laparoscopic appendectomy SURGEON: Lenora Rosario M.D. SENIOR STATISTICIAN: None ANESTHESIA: General endotracheal tube anesthesia ANESTHESIOLOGIST: Quintin Aden M.D. BRIEF SUMMARY: An otherwise uncomplicated laparoscopic appendectomy was performed with findings of perforated appendicitis with feculent peritonitis. Updated clinical summary: A very-pleasant 61-year-old gentleman with comorbidity of BMI 29.2 and hypertension, presenting with acute appendicitis supported by his history and physical, elevated white blood cell count and CT findings. Comorbidities: 1. BMI 29.2 2. Hypertension 3. Hiatal hernia 4. Enlarged prostate 5. Fatty infiltration of the liver 5. Descending colon diverticulosis without evidence of diverticulitis BRIEF HISTORY: The patient is a very pleasant 61-year-old gentleman with comorbidity of BMI 29.2 and hypertension, presenting with acute appendicitis supported by his history and physical, elevated white blood cell count and CT findings. I met with the patient and family () and counseled them regarding the possible options of treatment, and I strongly suggested a laparoscopic, possible open appendectomy. We reviewed the operation in detail as well as the risks, benefits, alternatives, and expected outcomes of this operation. After careful consideration of all the risks, benefits, and alternatives, the patient and family appeared to understand those risks and wished to proceed with surgery. For a detailed report of my consultation with patient and family, please refer to my separate consultation note. STATEMENT OF THE INFORMED CONSENT: The patient and family appeared to understand the risks of the operation to include, but not be limited to risk of postoperative pain and scar tissue, possible infection or bleeding requiring other interventions such as opening the wound, placement of drainage catheters, or other operative interventions; possible injury to surrounding to structures including bowel, bladder, bile duct, or blood vessels, or solid organs such as liver, kidney, or pancreas requiring other interventions or procedures; possible leakage of bowel from anastomotic sites or suture lines causing significant increase in morbidity and mortality and requiring multiple interventions including but not limited to, placement of drainage catheters, imaging studies, as well as operative interventions; possible other source of sepsis such as urinary tract infections or pneumonias, or other sources of potentially life threatening problems such as deep venous thrombus formation causing pulmonary embolism, myocardial arrhythmias and infarctions, and even . After careful consideration of all their options, the patient and family appeared to understand and wished to proceed with surgery. DESCRIPTION OF PROCEDURE: After obtaining informed consent, the patient was brought into the operating room and was placed in a normal supine position, where successful general endotracheal tube anesthesia was performed. Intravenous access was already in place and intravenous antimicrobials had been appropriately chosen and dosed prior to the operation. The patient's abdominal skin was prepped and draped from the nipple line down to the level of the upper thighs in the usual sterile fashion. We then called a surgical time-out where the patient's identification, date of , nature of the operation, allergies , presence of intravenous antimicrobials, presence of needed equipment, and any other concerns were reviewed and agreed upon by all members of the operating room team. We then started the operation by placing a 5 mm skin incision in the left lower quadrant and then introduced a 5 mm [employer] trocar into the peritoneal space, visualizing all the layers of the abdominal wall as we entered. Note that there was no indication of any injury to underlying structures with our entry into the peritoneal space. We insufflated the abdominal cavity to a maximum pressure of 15 mmHg and again inspected the area of insertion and ensured no obvious injury to underlying structures prior to inspecting the abdominal cavity and showing a small amount of pus but otherwise no obvious bowel contents, or other abnormal features. We could not see the appendix very well. Liver appeared to be steatotic. We, therefore, injected the future sites of our other trocars with 0.25% Marcaine with epinephrine and placed a 5 mm [employer] trocar into the midline suprapubic area, taking care not to injure the bladder. We also placed a 12 mm trocar in the umbilical midline area , all under direct visualization. With our instruments in place, we had excellent visualization and access to the right lower quadrant. We then performed judicious exploration of the right lower quadrant laparoscopically. The omentum was densely adherent onto the right lower quadrant. We were able to dissect this off with mostly blunt dissection. We encountered pus in the pelvis and on the right gutter. We suctioned this off expeditiously. We continued dissection we were able to mobilize the ileum off of the right pelvic wall using cautery until we came to the ileocecal valve. We could see a structure that appeared to be necrotic body of the appendix. I was not sure in the beginning whether this was the base or the tip of the appendix. With continued dissection we were able to discern that we were looking at the tip of the appendix and therefore we continued our dissection more proximally until we found the area of the base of the appendix. Note that the appendix had a perforation in mid body and there was feces that was coming out of this area. We controlled all of this using suction and there was no further spillage in the area. With further meticulous dissection, I was able to obtain an area where we could fire a stapler and for this reason we used a 45 mm hand-held Endo TAYLOR stapler with a vascular (white) load and transected and disconnected the appendix from the colon in this area. Stapler fired well without any technical difficulty and the staple rows appear to be nice and practice professional. We then delivered the appendix out through the 12 mm trocar site inside of an EndoCatch bag without having to enlarge the fascial defect as well as without contaminating the wound. The specimen was sent to Pathology for further analysis. We then ensured adequate hemostasis and bile stasis, removed all our equipment including the pneumoperitoneum from the abdominal cavity prior to closing the infraumbilical fascia with 1 [id number] 0 Vicryl suture on a UR-6 needle, washing the wounds with copious amounts of normal saline, injecting the initial insertion point of the trocar with 0.25% Marcaine with epinephrine, and then closing the skin using interrupted 4-0 Monocryl sutures. Light dressing was then applied. At the end of the operation, both the sponge count and needle count were reportedly correct x2. The patient tolerated the procedure without any reported complications. ESTIMATED BLOOD LOSS: Less than 10 mL. BLOOD OR BLOOD PRODUCT TRANSFUSIONS: None to my knowledge. SPECIMENS: 1. Appendix COMPLICATIONS: None. DISPOSITION: Recovery area. Disclaimers: 1. Inadvertent spelling and grammatical errors are likely due to electronic health record (EHR)/dictation software used and do not reflect on the quality of delivered patient care. 2. The electronic timestamp recorded on this note does not necessarily reflect the actual date and time of the visit or the service. 3. Portions of this note may have been created through electronic templates and computer algorithms that might bring in information either from the system or from other physicians and providers. Please note that such information may or may not contain errors, the occurrence of which are outside of my control. In general (but not always) this happens either in the beginning or at the end of the note. The portion of the note that I have created are generally done in 1 continuous block of text, flanked at the beginning and at the end by " ", and entered into one field in the EHR. 4. There may be other unanticipated errors in the note that are outside of my control. I can only attest to the portions of the note that I have created. LENORA ROSARIO M.D. Apr 05, 2017 11:16
[2017-04-05] MEDS ORDERED: NA PHOSPHATE/BIPHOS 133 ML ENEMA PR PRN (11:30)
[2017-04-05] MEDS ORDERED: HYDROmorphONE 1 MG/ML SYG IV PRN (11:30)
[2017-04-05] MEDS ORDERED: BISACODYL 10 MG SUPP PR PRN (11:30)
[2017-04-05] MEDS ORDERED: HYDROCODONE/APAP (5/325) TAB PO PRN ×2 (11:30)
[2017-04-05] MEDS ORDERED: DOCUSATE SODIUM 100 MG CAP PO PRN (11:30)
[2017-04-05] MEDS ORDERED: HYDROmorphONE (0.2 MG/ML) 10ML SYG IV ONE (11:40)
[2017-04-05] MEDS: ONDANSETRON 4 MG INJ IV PRN ×2 (11:51→22:31)
--- NOTE | 2017-04-05 11:52 | PN ---
Date/Time of Note Date/Time of Note DATE: 04/05/17 TIME: 11:52 Assessment/Plan VTE Prophylaxis VTE Prophylaxis Intervention: LMWH, SCD's Lines/Catheters IV Catheter Type (from Nrs): Peripheral IV Urinary Cath still in place: No Assessment/Plan Chief Complaint/Hosp Course 1. Acute appendicitis, with perforation and presence of feculent peritonitis -Status post laparoscopic appendectomy on 04/05/2017. -Continue pain control. -Encourage IS/Ambulation -Postoperative diet per surgery. 2. Sepsis secondary to #1.BC growing gram negative rods. -Continue broad-spectrum IV antibiotics. Follow-up final cultures. 3. Hypertension -Continue home medications. 4. Enlarged prostate. No urinary symptoms. -Monitor. Defer for outpt PSA/urology eval. 5. Diverticulosis of descending colon. No evidence of diverticulitis. -Monitor. -Lifestyle changes advised 6. Fatty liver. -Lifestyle changes and weight reduction advised. Prophylaxis: Lovenox/PPi Follow-up with surgery recs postoperatively. F/u final cultures. patient was seen in collaboration with . Problems: Subjective 24 Hr Interval Summary Free Text/Dictation Patient is status post from laparoscopic appendectomy. Currently pain is minimal. Exam/Review of Systems Vital Signs Vitals Vital Signs Date Time Temp Pulse Resp B/P Pulse Ox O2 Delivery O2 Flow Rate FiO2 04/05/17 11:43 104 18 140/70 92 Room Air 04/05/17 11:33 10.0 04/05/17 11:21 99.0 Intake and Output 04/04/17 04/04/17 04/05/17 15:00 23:00 07:00 Intake Total 250 ml 1600 ml Output Total 450 ml Balance 250 ml 1150 ml Exam General: Well developed,adequately built, not in any acute distress . HEENT: Normocephalic, Atraumatic, No laceration or hematoma; Eyes: PEERL, Conjunctiva clear, Anicteric sclera Neck: Supple without any lymphadenopathy, nontender, no JVD, no carotid bruits, trachea midline, no thyromegaly Cardiac: S1, S2 auscultated, regular rhythm and rate, no mumurs or gallop Pulmonary: Normal respiratory effort. Chest clear to auscultation bilaterally, no adventitious breath sounds GI: Protuberant abdomen with moderate distention. Laparoscopic incision site with intact dressing. There is moderate tenderness all quadrants. no masses, no rebound tenderness or guarding. Bowel sounds active on all four quadrants Genitourinary: Deferred Extremities: No cyanosis, clubbing, or edema. Pulses [2+] bilaterally. Full ROM on all four extremities. No focal weakness appreciated. Neurologic: Alert to person, place, time, and situation. Affect appropriate, intact sensation. Skin: Clean,dry, and intact. No ecchymosis, no rashes, or lesions Results Result Diagram: 04/05/17 0505 04/05/17 0505 Results 24 hrs Laboratory Tests Test 04/04/17 16:20 04/04/17 16:27 04/04/17 18:30 04/04/17 20:55 White Blood Count 18.3 #H Red Blood Count 5.31 Hemoglobin 16.8 Hematocrit 47.9 Mean Corpuscular Volume 90.2 Mean Corpuscular Hemoglobin 31.6 Mean Corpuscular Hemoglobin Concent 35.1 Red Cell Distribution Width 13.0 Platelet Count 255 # Mean Platelet Volume 11.0 H Neutrophils % 78.3 H Lymphocytes % 12.7 L Monocytes % 8.3 Eosinophils % 0.0 Basophils % 0.2 Nucleated Red Blood Cells % 0.0 Neutrophils # 14.3 H Lymphocytes # 2.3 Monocytes # 1.5 H Eosinophils # 0.0 Basophils # 0.0 Nucleated Red Blood Cells # 0.0 Prothrombin Time 13.3 Prothrombin Time Ratio 1.0 INR International Normalized Ratio 1.01 Activated Partial Thromboplast Time 31.9 Sodium Level 142 Potassium Level 4.1 Chloride Level 101 Carbon Dioxide Level 25 Anion Gap 20 H Blood Urea Nitrogen 16 Creatinine 1.33 H Glucose Level 181 Calcium Level 9.4 Total Bilirubin 0.8 Direct Bilirubin 0.00 Indirect Bilirubin 0.8 Aspartate Amino Transf (AST/SGOT) 24 Alanine Aminotransferase (ALT/SGPT) 40 Alkaline Phosphatase 80 Troponin I < 0.012 Total Protein 8.4 H Albumin 4.8 Globulin 3.60 H Albumin/Globulin Ratio 1.33 Lactic Acid Level 3.0 *H 2.0 3.0 *H Free Thyroxine 1.17 Test 04/05/17 01:21 04/05/17 05:05 Lactic Acid Level 1.7 2.0 White Blood Count 11.8 #H Red Blood Count 4.61 L Hemoglobin 14.1 Hematocrit 42.0 Mean Corpuscular Volume 91.1 Mean Corpuscular Hemoglobin 30.6 Mean Corpuscular Hemoglobin Concent 33.6 Red Cell Distribution Width 13.2 Platelet Count 167 # Mean Platelet Volume 11.1 H Neutrophils % Segmented Neutrophils % (Manual) 44 Band Neutrophils % (Manual) 35 H Lymphocytes % Lymphocytes % (Manual) 13 L Reactive Lymphocytes % (Manual) 1 H Monocytes % Monocytes % (Manual) 7 Eosinophils % Basophils % Nucleated Red Blood Cells % 0.0 Neutrophils # Neutrophils # (Manual) 5.7 Band Neutrophils # 4.1 H Absolute Lymphocytes (Manual) 1.5 Lymphocytes # Reactive Lymphocytes # 0.1 H Monocytes # Absolute Monocytes (Manual) 0.8 Eosinophils # Basophils # Nucleated Red Blood Cells # Platelet Estimate NORMAL Polychromasia 1+ Sodium Level 143 Potassium Level 3.9 Chloride Level 108 Carbon Dioxide Level 28 Anion Gap 11 # Blood Urea Nitrogen 19 Creatinine 1.01 Glucose Level 136 # Hemoglobin A1c 5.7 Calcium Level 8.3 L Phosphorus Level 2.5 Magnesium Level 1.7 Triglycerides Level 56 Cholesterol Level 81 L LDL Cholesterol, Calculated 32 HDL Cholesterol 38 Cholesterol/HDL Ratio 2.1 Thyroid Stimulating Hormone (TSH) 0.693 Medications Medications Current Medications Ondansetron HCl (Zofran Inj) 4 mg Q6H PRN IV NAUSEA AND/OR VOMITING; Start 04/04/17 at 19:30 Acetaminophen (Tylenol Tab) 650 mg Q6H PRN PO PAIN LEVEL 1-3 OR FEVER Last administered on 04/04/17 21:09; Admin Dose 650 MG; Start 04/04/17 at 19:30 Magnesium Hydroxide (Milk Of Mag) 30 ml DAILY PRN PO CONSTIPATION; Start at 19:30 Heparin Sodium (Porcine) (Heparin (5000 Units/0.5 ml)) 5,000 unit Q12 SC Last administered on 04/04/17 21:17; Admin Dose 5,000 UNIT; Start 04/04/17 at 21:00 Lorazepam (Ativan) 0.5 mg Q6H PRN IV ANXIETY; Start 04/04/17 at 19:30 Hydralazine HCl (Apresoline) 10 mg Q6H PRN IV ELEVATED BLOOD PRESSURE; Start 04/04/17 at 19:30 Nitroglycerin 1 tab 1 tab Q5M PRN SL ANGINA; Start 04/04/17 at 19:30 Piperacillin Sod/ Tazobactam Sod 50 ml @ 100 mls/hr Q6 IVPB Last administered on 04/05/17t 05:21; Admin Dose 100 MLS/HR; Start 04/05/17 at 00:00 Potassium Chloride/Dextrose/ Sod Cl (D5-1/2ns + KCl 20 Meq) 1,000 ml @ 100 mls/ hr Q10H IV ; Start 04/05/17 at 11:19 Acetaminophen/ Hydrocodone Bitart ([place] (5/325)) 1 tab Q4H PRN PO PAIN LEVEL 4 -7; Start 04/05/17 at 11:30 Acetaminophen/ Hydrocodone Bitart ([place] (5/325)) 2 tab Q4H PRN PO PAIN LEVEL 7 -10; Start 04/05/17 at 11:30 Hydromorphone HCl (Dilaudid) 0.5 mg Q2 PRN IV PAIN; Start 04/05/17 at 11:30 Hydromorphone HCl (Dilaudid) 1 mg Q2 PRN IV PAIN; Start 04/05/17 at 11:30 Docusate Sodium (Colace) 100 mg BID PRN PO CONSTIPATION; Start 04/05/17 at 11: 30 Bisacodyl (Dulcolax Supp) 10 mg BID PRN [place] CONSTIPATION; Start 04/05/17 at 11: 30 Sodium Biphosphate/ Sodium Phosphate (Fleet Enema) 133 ml BID PRN [place] CONSTIPATION; Start 04/05/17 at 11:30 Famotidine (Pepcid Iv) 20 mg DAILY IV ; Start 04/06/17 at 09:00 Enoxaparin Sodium (Lovenox) 40 mg DAILY SC ; Start 04/06/17 at 09:00; Status ALFREDA EDMONDSON V. [employer]CIAL PRO[employer] MANAGER Apr 05, 2017 11:52
[2017-04-05] MEDS ORDERED: HYDROmorphONE (0.2 MG/ML) 10ML SYG IV PRN ×3 (12:00)
[2017-04-05] MEDS ORDERED: MEPERIDINE 25 MG INJ IV PRN (12:00)
[2017-04-05] MEDS ORDERED: FENTAnyl 50 MCG/ML VIAL IV PRN ×3 (12:00)
[2017-04-05] MEDS ORDERED: LABETALOL HCL 20MG INJ IV PRN (12:00)
[2017-04-05] MEDS ORDERED: hydrALAzine 20 MG INJ IV PRN (12:00)
[2017-04-05] MEDS: D5W-0.45 NACL + KCL 20 MEQ 1,000 ML IV SCH ×2 (12:36→23:47)
[2017-04-05] MEDS: LISINOPRIL 20 MG TAB PO SCH (20:38)
[2017-04-06] MEDS ORDERED: ONDANSETRON INJ 8 MG in DEXTROSE 5% 50 ML IV ONE (00:35)
[2017-04-06] MEDS ORDERED: LORAZEPAM 2 MG INJ IV ONE (01:00)
[2017-04-06 01:55] VITALS: BP 129/65; RESP 18
[2017-04-06] MEDS: PIPER-TAZO 3.375 GM IV (PMX) 50 ML IVPB SCH ×3 (05:45→18:23)
[2017-04-06 05:49] LABS: BASOPHILS % 0.3 % (0.0-2.0); HEMATOCRIT 39.8 % (42.0-52.0); HEMOGLOBIN 13.2 g/dl (14.0-18.0); LYMPHOCYTES # 1.1 10^3/ul (0.8-2.9); LYMPHOCYTES % 8.3 % (15.0-51.0); MEAN CORPUSCULAR HEMOGLOBIN 29.9 pg (29.0-33.0); MEAN CORPUSCULAR HGB CONC 33.2 g/dl (32.0-37.0); MEAN CORPUSCULAR VOLUME 90.2 fl (82.0-101.0); MEAN PLATELET VOLUME 11.4 fl (7.4-10.4); MONOCYTE # 0.6 10^3/ul (0.3-0.9); MONOCYTES % 4.7 % (0.0-11.0); NEUTROPHIL # 11.7 10^3/ul (1.6-7.5); NEUTROPHILS % 86.1 % (39.0-77.0); PLATELET COUNT 157 10^3/UL (140-415); POSITIVE DIFF @See below; RED BLOOD COUNT 4.41 10^6/ul (4.70-6.10); WHITE BLOOD COUNT 13.6 10^3/ul (4.8-10.8)
[2017-04-06 06:08] LABS: PROTIME 13.2 Sec (12.2-14.2)
[2017-04-06 06:38] LABS: ALBUMIN 3.2 g/dl (3.3-4.9); ALBUMIN/GLOBULIN RATIO 0.91; BILIRUBIN,INDIRECT 0.5 mg/dl (0-1.1); BILIRUBIN,TOTAL 0.5 mg/dl (0.2-1.3); CALCIUM 8.8 mg/dl (8.4-10.2); CREATININE 0.85 mg/dl (0.61-1.24); MAGNESIUM 1.9 mg/dl (1.7-2.5); PHOSPHORUS 1.6 mg/dl (2.5-4.9); POTASSIUM 3.8 mmol/L (3.5-5.1); TOTAL PROTEIN 6.7 g/dl (6.1-8.1)
[2017-04-06] MEDS: ONDANSETRON INJ 8 MG in DEXTROSE 5% 50 ML IV PRN ×2 (06:55→10:27)
[2017-04-06] MEDS: D5W-0.45 NACL + KCL 20 MEQ 1,000 ML IV SCH ×2 (07:19→17:44)
[2017-04-06 07:26] VITALS: BP 141/72; RESP 19
[2017-04-06] MEDS: LORATADINE 10 MG TAB PO SCH (08:58)
[2017-04-06] MEDS: FAMOTIDINE 20 MG INJ IV SCH (08:59)
[2017-04-06] MEDS: ASPIRIN (EC) 81 MG TAB PO SCH (08:59)
[2017-04-06] MEDS: ENOXAPARIN 40 MG/0.4 ML SYG SC SCH (09:13)
--- NOTE | 2017-04-06 09:58 | PN ---
Date/Time of Note Date/Time of Note DATE: 04/06/17 TIME: 09:55 Assessment/Plan VTE Prophylaxis VTE Prophylaxis Intervention: LMWH Lines/Catheters [facility] Peripheral IV Urinary Cath still in place: No Assessment/Plan Chief Complaint/Hosp Course 1. Acute appendicitis, with perforation and presence of feculent peritonitis -Status post laparoscopic appendectomy on 04/05/2017. Currently with nausea/ vomiting -Continue pain control.Add Reglan. Continue PRN Zofran. -Encourage IS/Ambulation -Postoperative diet per surgery. 2. Sepsis secondary to #1.BC growing gram negative rods. -Continue broad-spectrum IV antibiotics. Follow-up final cultures. 3.Enlarged prostate.Now with possible obstructive uropathy symptoms. -Correlate with a PSA and consider Flomax if indicated. -Bladder scan and summers insertion if indicated. 4. Hypertension -Continue home medications. 5. Diverticulosis of descending colon. No evidence of diverticulitis. -Monitor. -Lifestyle changes advised 6. Fatty liver. -Lifestyle changes and weight reduction advised. 7.Hypophosphatemia. -K phos IV today and monitor level. Prophylaxis: Lovenox/PPi Follow-up with surgery recs postoperatively. F/u final cultures. patient was seen in collaboration with . Problems: Subjective 24 Hr Interval Summary Free Text/Dictation PATIENT WITH ABDOMINAL DISTENTION AND PAIN. HE MTZ SNOT BEEN ABLE TO VOID AND IS HAVING PAIN WITH VOID ATTEMPT. HE ALSO HAS NAUSEA WITH VOMITING. UNABLE TO TOLERATE DIET. NO BOWEL MOVEMENT, PASSING FLATUS. Exam/Review of Systems Vital Signs Vitals Vital Signs Date Time Temp Pulse Resp B/P Pulse Ox O2 Delivery O2 Flow Rate FiO2 04/06/17 08:01 2.0 04/06/17 07:26 98.7 95 19 141/72 93 04/05/17 13:31 Nasal Cannula Intake and Output 04/05/17 04/05/17 04/06/17 15:00 23:00 07:00 Intake Total 1150 ml 1730 ml 1550 ml Output Total 10 ml 300 ml 650 ml Balance 1140 ml 1430 ml 900 ml Exam General: Well developed,adequately built, not in any acute distress . HEENT: Normocephalic, Atraumatic, No laceration or hematoma; Eyes: PEERL, Conjunctiva clear, Anicteric sclera Neck: Supple without any lymphadenopathy, nontender, no JVD, no carotid bruits, trachea midline, no thyromegaly Cardiac: S1, S2 auscultated, regular rhythm and rate, no mumurs or gallop Pulmonary: Normal respiratory effort. Chest clear to auscultation bilaterally, no adventitious breath sounds GI: Protuberant abdomen with moderate distention. Laparoscopic incision site with intact dressing. There is moderate tenderness all quadrants. no masses, no rebound tenderness or guarding. Bowel sounds not audible on all four quadrants Genitourinary: Deferred Extremities: No cyanosis, clubbing, or edema. Pulses [2+] bilaterally. Full ROM on all four extremities. No focal weakness appreciated. Neurologic: Alert to person, place, time, and situation. Affect appropriate, intact sensation. Skin: Clean,dry, and intact. No ecchymosis, no rashes, or lesions Results Result Diagram: 04/06/17 0513 04/06/17 0513 Results 24 hrs Laboratory Tests Test 04/05/17 14:40 04/05/17 18:00 04/06/17 05:13 Lactic Acid Level 3.0 *H 2.0 1.2 White Blood Count 13.6 H Red Blood Count 4.41 L Hemoglobin 13.2 L Hematocrit 39.8 L Mean Corpuscular Volume 90.2 Mean Corpuscular Hemoglobin 29.9 Mean Corpuscular Hemoglobin Concent 33.2 Red Cell Distribution Width 13.0 Platelet Count 157 Mean Platelet Volume 11.4 H Neutrophils % 86.1 H Lymphocytes % 8.3 L Monocytes % 4.7 Eosinophils % 0.0 Basophils % 0.3 Nucleated Red Blood Cells % 0.0 Neutrophils # 11.7 H Lymphocytes # 1.1 Monocytes # 0.6 Eosinophils # 0.0 Basophils # 0.0 Nucleated Red Blood Cells # 0.0 Prothrombin Time 13.2 Prothrombin Time Ratio 1.0 INR International Normalized Ratio 1.00 Activated Partial Thromboplast Time 35.0 Sodium Level 139 Potassium Level 3.8 Chloride Level 102 Carbon Dioxide Level 30 Anion Gap 11 Blood Urea Nitrogen 18 Creatinine 0.85 Glucose Level 141 Calcium Level 8.8 Phosphorus Level 1.6 L Magnesium Level 1.9 Total Bilirubin 0.5 Direct Bilirubin 0.00 Indirect Bilirubin 0.5 Aspartate Amino Transf (AST/SGOT) 31 Alanine Aminotransferase (ALT/SGPT) 32 Alkaline Phosphatase 62 B-Type Natriuretic Peptide 494 H Total Protein 6.7 # Albumin 3.2 #L Globulin 3.50 H Albumin/Globulin Ratio 0.91 Medications Medications Current Medications Acetaminophen (Tylenol Tab) 650 mg Q6H PRN PO PAIN LEVEL 1-3 OR FEVER Last administered on 04/04/17 21:09; Admin Dose 650 MG; Start 04/04/17 at 19:30 Magnesium Hydroxide (Milk Of Mag) 30 ml DAILY PRN PO CONSTIPATION; Start at 19:30 Lorazepam (Ativan) 0.5 mg Q6H PRN IV ANXIETY; Start 04/04/17 at 19:30 Nitroglycerin 1 tab 1 tab Q5M PRN SL ANGINA; Start 04/04/17 at 19:30 Piperacillin Sod/ Tazobactam Sod (Zosyn 3.375gm/ 50 ml (Pmx)) 50 ml @ 100 mls/ hr Q6 IVPB Last administered on 04/06/17 05:45; Admin Dose 100 MLS/HR; Start 04/05/17 at 00:00 Acetaminophen/ Hydrocodone Bitart ([place] (5/325)) 1 tab Q4H PRN PO PAIN LEVEL 4 -7 Last administered on 04/05/17 20:38; Admin Dose 1 TAB; Start 04/05/17 at 11: 30 Acetaminophen/ Hydrocodone Bitart ([place] (5/325)) 2 tab Q4H PRN PO PAIN LEVEL 7 -10; Start 04/05/17 at 11:30 Hydromorphone HCl (Dilaudid) 0.5 mg Q2 PRN IV PAIN; Start 04/05/17 at 11:30 Hydromorphone HCl (Dilaudid) 1 mg Q2 PRN IV PAIN; Start 04/05/17 at 11:30 Docusate Sodium (Colace) 100 mg BID PRN PO CONSTIPATION; Start 04/05/17 at 11: 30 Bisacodyl (Dulcolax Supp) 10 mg BID PRN [place] CONSTIPATION; Start 04/05/17 at 11: 30 Sodium Biphosphate/ Sodium Phosphate (Fleet Enema) 133 ml BID PRN [place] CONSTIPATION; Start 04/05/17 at 11:30 Famotidine (Pepcid Iv) 20 mg DAILY IV Last administered on 04/06/17 08:59; Admin Dose 20 MG; Start 04/06/17 at 09:00 Enoxaparin Sodium (Lovenox) 40 mg DAILY SC Last administered on 04/06/17 09: 13; Admin Dose 40 MG; Start 04/06/17 at 09:00 Aspirin (Halfprin) 81 mg DAILY PO Last administered on 04/06/17 08:59; Admin Dose 81 MG; Start 04/06/17 at 09:00 Lisinopril (Zestril) 20 mg QHS PO Last administered on 04/05/17 20:38; Admin Dose 20 MG; Start 04/05/17 at 21:00 Loratadine 10 mg 10 mg DAILY PO Last administered on 04/06/17 08:58; Admin Dose 10 MG; Start 04/06/17 at 09:00 Ondansetron HCl/ Dextrose (Zofran Inj/D5W) 54 ml @ 108 mls/hr Q6H PRN IV NAUSEA AND/OR VOMITING Last administered on 04/06/17 06:55; Admin Dose 108 MLS /HR; Start 04/06/17 at 01:00 ALFREDA ARGUETA V. [employer] MECH[employer]IC Apr 06, 2017 09:58
[2017-04-06] MEDS ORDERED: POTASSIUM PHOSPHATE 20 MEQ in SOD CHLORIDE 0.9% 250 ML IVPB ONE (10:00)
[2017-04-06] MEDS ORDERED: SOD CHLORIDE 0.9% 1,000 ML IV ONE (10:30)
--- NOTE | 2017-04-06 11:42 | PN ---
Date/Time of Note Date/Time of Note DATE: 04/06/17 TIME: 11:41 Assessment/Plan Lines/Catheters IV Catheter Type (from [facility]): Peripheral IV [place] in Place (from [facility]): No Assessment/Plan Assessment/Plan [facility] Progress Note Date of Service: 04/06/2017 Location of Service: [facility] fourth floor Today's Assessment & Plan: Overall stable but showing signs of expected postoperative paralytic ileus. This is expected since the patient had feculent peritonitis along with his perforated appendicitis.. Abdomen remains benign from a surgical standpoint, but the patient certainly needs to be kept in house under careful observation and treatment. No indications of major postoperative complications or wound problems. No indication for acute surgical intervention. Awaiting further return of bowel function. With above assessment, I've recommended the following for today: 1. Continue in-house care 2. NG tube if patient's nausea and vomiting continues 3. May have small amounts of clear liquid diet for comfort for now. Do not advance. 4. Labs in a.m. 5. Increase activity 6. Incentive spirometry 7. Continue broad-spectrum antimicrobial therapy Thank you again for your great care of this very pleasant patient and wonderful family. If there are any questions, please feel free to call me at [phone]. Nature of presenting problem: High severity Please note that, given the multiple number of diagnoses or management options, the moderate amount and/or complexity of data needed to be reviewed, and I risk of complications and/or morbidity or mortality, this qualifies as high complexity type of decision-making. Disclaimers: 1. Inadvertent spelling and grammatical errors are likely due to electronic health record (EHR)/dictation software used and do not reflect on the quality of delivered patient care. 2. The electronic timestamp recorded on this note does not necessarily reflect the actual date and time of the visit or the service. 3. Portions of this note may have been created through electronic templates and computer algorithms that might bring in information either from the system or from other physicians and providers. Please note that such information may or may not contain errors, the occurrence of which are outside of my control. In general (but not always) this happens either in the beginning or at the end of the note. The portion of the note that I have created are generally done in 1 continuous block of text, flanked at the beginning and at the end by " ", and entered into one field in the EHR. 4. There may be other unanticipated errors in the note that are outside of my control. I can only attest to the portions of the note that I have created. Updated Clinical Summary: A very pleasant 61-year-old gentleman with a few comorbidities, admitted through the emergency department at [facility] on 04/04/2017 with acute appendicitis supported by his history and physical, elevated white blood cell count and CT findings. S/p an otherwise uncomplicated laparoscopic appendectomy [facility] 04/05/17 with findings of perforated appendicitis with feculent peritonitis. Comorbidities: 1. Acute appendicitis, with perforation and presence of feculent peritonitis; s /p an otherwise uncomplicated laparoscopic appendectomy [facility] 04/05/17 with findings of perforated appendicitis with feculent peritonitis 2. BMI 29.2 3. Hypertension 4. Enlarged prostate 5. Fatty infiltration of the liver 5. Descending colon diverticulosis without evidence of diverticulitis 6. Hiatal hernia Subjective: No major events or complaints, but did have nausea and vomiting as early as this morning; no major reported abd pain and under control with medications; no n/v/d; no sob or cp; bowel activity; activity Objective: Vitals: See below Exam: GENERAL: On exam, the patient was laying in bed and appeared to be comfortable and in no acute distress. ABDOMEN: Soft, minimally tender around the incisions and protuberant with mild distention in addition to it. Incision dressings are clean, dry and intact without any evidence of obvious underlying erythema, edema, discharge, or hernia. There are no peritoneal signs or guarding. SKIN: Skin appears to be pink and feels warm to touch. NEUROLOGIC: Patient is awake, alert, and follows commands appropriately. Exam/Review of Systems Vital Signs Vitals Vital Signs Date Time Temp Pulse Resp B/P Pulse Ox O2 Delivery O2 Flow Rate FiO2 04/06/17 08:01 2.0 04/06/17 07:26 98.7 95 19 141/72 93 04/05/17 13:31 Nasal Cannula Intake and Output 04/05/17 04/05/17 04/06/17 15:00 23:00 07:00 Intake Total 1150 ml 1730 ml 1550 ml Output Total 10 ml 300 ml 650 ml Balance 1140 ml 1430 ml 900 ml Results Result Diagram: 04/06/17 0513 04/06/17 0513 LENORA ROSARIO M.D. Apr 06, 2017 11:42
[2017-04-06] MEDS: METOCLOPRAMIDE 10 MG INJ IV SCH ×3 (11:50→23:49)
[2017-04-06 14:59] VITALS: BP 164/81; RESP 21
[2017-04-06] MEDS: HYDROmorphONE 0.5 MG/0.5 ML SYG IV PRN ×3 (15:21→22:51)
[2017-04-06] MEDS ORDERED: SOD CHLORIDE 0.9% 500 ML IV ONE (15:30)
[2017-04-06 20:05] VITALS: BP 143/78; RESP 20
[2017-04-06] MEDS: LISINOPRIL 20 MG TAB PO SCH (21:00)
[2017-04-07] MEDS: PIPER-TAZO 3.375 GM IV (PMX) 50 ML IVPB SCH ×3 (00:44→11:16)
[2017-04-07 02:20] VITALS: BP 142/73; RESP 20
[2017-04-07] MEDS: D5W-0.45 NACL + KCL 20 MEQ 1,000 ML IV SCH ×2 (05:02→11:04)
[2017-04-07 05:58] LABS: BASOPHILS % 0.1 % (0.0-2.0); EOSINOPHILS % 0.3 % (0.0-7.0); HEMATOCRIT 39.6 % (42.0-52.0); HEMOGLOBIN 13.1 g/dl (14.0-18.0); LYMPHOCYTES # 1.1 10^3/ul (0.8-2.9); LYMPHOCYTES % 8.5 % (15.0-51.0); MEAN CORPUSCULAR HEMOGLOBIN 29.8 pg (29.0-33.0); MEAN CORPUSCULAR HGB CONC 33.1 g/dl (32.0-37.0); MEAN PLATELET VOLUME 11.3 fl (7.4-10.4); MONOCYTE # 0.7 10^3/ul (0.3-0.9); MONOCYTES % 5.2 % (0.0-11.0); NEUTROPHIL # 11.3 10^3/ul (1.6-7.5); NEUTROPHILS % 85.4 % (39.0-77.0); PLATELET COUNT 194 10^3/UL (140-415); RED CELL DISTRIBUTION WIDTH 13.2 % (11.5-14.5); WHITE BLOOD COUNT 13.2 10^3/ul (4.8-10.8)
[2017-04-07] MEDS: METOCLOPRAMIDE 10 MG INJ IV SCH ×4 (06:02→23:15)
[2017-04-07 06:23] LABS: ALBUMIN 3.2 g/dl (3.3-4.9); ALBUMIN/GLOBULIN RATIO 0.96; BILIRUBIN,INDIRECT 0.5 mg/dl (0-1.1); BILIRUBIN,TOTAL 0.5 mg/dl (0.2-1.3); CALCIUM 8.3 mg/dl (8.4-10.2); CREATININE 0.88 mg/dl (0.61-1.24); MAGNESIUM 2.1 mg/dl (1.7-2.5); PHOSPHORUS 2.1 mg/dl (2.5-4.9); POTASSIUM 4.1 mmol/L (3.5-5.1); PROTIME 13.2 Sec (12.2-14.2); TOTAL PROTEIN 6.5 g/dl (6.1-8.1)
[2017-04-07 06:24] LABS: PARTIAL THROMBOPLASTIN TIME 34.6 Sec (25.0-35.0)
[2017-04-07] MEDS: LORATADINE 10 MG TAB PO SCH (07:25)
[2017-04-07 07:27] VITALS: BP 129/59; RESP 18
[2017-04-07] MEDS: ASPIRIN (EC) 81 MG TAB PO SCH (07:30)
[2017-04-07] MEDS: HYDROmorphONE 0.5 MG/0.5 ML SYG IV PRN (08:28)
[2017-04-07] MEDS: FAMOTIDINE 20 MG INJ IV SCH (08:35)
[2017-04-07] MEDS: ENOXAPARIN 40 MG/0.4 ML SYG SC SCH (08:41)
--- NOTE | 2017-04-07 09:39 | PN ---
Date/Time of Note Date/Time of Note DATE: 04/07/17 TIME: 09:36 Assessment/Plan VTE Prophylaxis VTE Prophylaxis Intervention: LMWH Lines/Catheters IV Catheter Type (from [facility]): Peripheral IV Urinary Cath still in place: No Assessment/Plan Chief Complaint/Hosp Course 1. Acute appendicitis, with perforation and presence of feculent peritonitis. Currently with possible postoperative paralytic ileus. -Status post laparoscopic appendectomy on 04/05/2017. -NG tube to LIS, draining a large amount. Continue Reglan,PRN Zofran and morphine for pain. -Encourage IS/Ambulation -Postoperative diet per surgery. Currently on clear diet. 2. Sepsis secondary to #1.BC growing gram negative rods. Sepsis improving. -Continue broad-spectrum IV antibiotics. Follow-up final cultures. 3.Enlarged prostate. PSA normal. No urinary retention. -Monitor. 4. Hypertension -Continue home medications. 5. Diverticulosis of descending colon. No evidence of diverticulitis. -Monitor. -Lifestyle changes advised 6. Fatty liver. -Lifestyle changes and weight reduction advised. 7.Hypophosphatemia. Improved. -Replete as needed. Prophylaxis: Lovenox/PPi Follow-up with surgery recs postoperatively. F/u final cultures. patient was seen in collaboration with . Problems: Subjective 24 Hr Interval Summary Free Text/Dictation Patient now with NG tube to low intermittent suction, draining large amount of greenish secretions. His abdomen today is softer and pain is improved. He is currently tolerating a clear diet. Exam/Review of Systems Vital Signs Vitals Vital Signs Date Time Temp Pulse Resp B/P Pulse Ox O2 Delivery O2 Flow Rate FiO2 04/07/17 07:27 99.9 85 18 129/59 95 04/06/17 08:01 2.0 04/05/17 13:31 Nasal Cannula Intake and Output 04/06/17 04/06/17 04/07/17 15:00 23:00 07:00 Intake Total 2120 ml 550 ml 1100 ml Output Total 1910 ml 800 ml Balance 2120 ml -1360 ml 300 ml Exam General: Well developed,adequately built, not in any acute distress . HEENT: Normocephalic, Atraumatic, No laceration or hematoma; Eyes: PEERL, Conjunctiva clear, Anicteric sclera Neck: Supple without any lymphadenopathy, nontender, no JVD, no carotid bruits, trachea midline, no thyromegaly Cardiac: S1, S2 auscultated, regular rhythm and rate, no mumurs or gallop Pulmonary: Normal respiratory effort. Chest clear to auscultation bilaterally, no adventitious breath sounds GI: NG tube to low intermittent suction, draining greenish and large amount. Protuberant abdomen with moderate distention-today improved.. Laparoscopic incision site with intact dressing. There is mild tenderness all quadrants. no masses, no rebound tenderness or guarding. Bowel sounds not audible on all four quadrants Genitourinary: Deferred Extremities: No cyanosis, clubbing, or edema. Pulses [2+] bilaterally. Full ROM on all four extremities. No focal weakness appreciated. Neurologic: Alert to person, place, time, and situation. Affect appropriate, intact sensation. Skin: Clean,dry, and intact. No ecchymosis, no rashes, or lesions Results Result Diagram: 04/07/17 0512 04/07/17 0512 Results 24 hrs Laboratory Tests Test 04/06/17 15:28 04/07/17 05:12 Lactic Acid Level 1.1 White Blood Count 13.2 H Red Blood Count 4.40 L Hemoglobin 13.1 L Hematocrit 39.6 L Mean Corpuscular Volume 90.0 Mean Corpuscular Hemoglobin 29.8 Mean Corpuscular Hemoglobin Concent 33.1 Red Cell Distribution Width 13.2 Platelet Count 194 # Mean Platelet Volume 11.3 H Neutrophils % 85.4 H Lymphocytes % 8.5 L Monocytes % 5.2 Eosinophils % 0.3 Basophils % 0.1 Nucleated Red Blood Cells % 0.0 Neutrophils # 11.3 H Lymphocytes # 1.1 Monocytes # 0.7 Eosinophils # 0.0 Basophils # 0.0 Nucleated Red Blood Cells # 0.0 Prothrombin Time 13.2 Prothrombin Time Ratio 1.0 INR International Normalized Ratio 1.00 Activated Partial Thromboplast Time 34.6 Sodium Level 140 Potassium Level 4.1 Chloride Level 106 Carbon Dioxide Level 24 Anion Gap 14 Blood Urea Nitrogen 18 Creatinine 0.88 Glucose Level 139 Calcium Level 8.3 L Phosphorus Level 2.1 L Magnesium Level 2.1 Total Bilirubin 0.5 Direct Bilirubin 0.00 Indirect Bilirubin 0.5 Aspartate Amino Transf (AST/SGOT) 22 Alanine Aminotransferase (ALT/SGPT) 31 Alkaline Phosphatase 67 B-Type Natriuretic Peptide 188 H Total Protein 6.5 Albumin 3.2 L Globulin 3.30 H Albumin/Globulin Ratio 0.96 Medications Medications Current Medications Acetaminophen (Tylenol Tab) 650 mg Q6H PRN PO PAIN LEVEL 1-3 OR FEVER Last administered on 04/04/17 21:09; Admin Dose 650 MG; Start 04/04/17 at 19:30 Magnesium Hydroxide (Milk Of Mag) 30 ml DAILY PRN PO CONSTIPATION; Start at 19:30 Lorazepam (Ativan) 0.5 mg Q6H PRN IV ANXIETY; Start 04/04/17 at 19:30 Nitroglycerin 1 tab 1 tab Q5M PRN SL ANGINA; Start 04/04/17 at 19:30 Piperacillin Sod/ Tazobactam Sod (Zosyn 3.375gm/ 50 ml (Pmx)) 50 ml @ 100 mls/ hr Q6 IVPB Last administered on 04/07/17 06:03; Admin Dose 100 MLS/HR; Start 04/05/17 at 00:00 Acetaminophen/ Hydrocodone Bitart ([place] (5/325)) 1 tab Q4H PRN PO PAIN LEVEL 4 -7 Last administered on 04/05/17 20:38; Admin Dose 1 TAB; Start 04/05/17 at 11: 30 Acetaminophen/ Hydrocodone Bitart ([place] (5/325)) 2 tab Q4H PRN PO PAIN LEVEL 7 -10; Start 04/05/17 at 11:30 Hydromorphone HCl (Dilaudid) 0.5 mg Q2 PRN IV PAIN Last administered on 08:28; Admin Dose 0.5 MG; Start 04/05/17 at 11:30 Hydromorphone HCl (Dilaudid) 1 mg Q2 PRN IV PAIN; Start 04/05/17 at 11:30 Docusate Sodium (Colace) 100 mg BID PRN PO CONSTIPATION; Start 04/05/17 at 11: 30 Bisacodyl (Dulcolax Supp) 10 mg BID PRN MA CONSTIPATION; Start 04/05/17 at 11: 30 Sodium Biphosphate/ Sodium Phosphate (Fleet Enema) 133 ml BID PRN MA CONSTIPATION; Start 04/05/17 at 11:30 Famotidine (Pepcid Iv) 20 mg DAILY IV Last administered on 04/07/17 08:35; Admin Dose 20 MG; Start 04/06/17 at 09:00 Enoxaparin Sodium (Lovenox) 40 mg DAILY SC Last administered on 04/07/17 08: 41; Admin Dose 40 MG; Start 04/06/17 at 09:00 Aspirin (Halfprin) 81 mg DAILY PO Last administered on 04/06/17 08:59; Admin Dose 81 MG; Start 04/06/17 at 09:00 Lisinopril (Zestril) 20 mg QHS PO Last administered on 04/05/17 20:38; Admin Dose 20 MG; Start 04/05/17 at 21:00 Loratadine 10 mg 10 mg DAILY PO Last administered on 04/06/17 08:58; Admin Dose 10 MG; Start 04/06/17 at 09:00 Ondansetron HCl/ Dextrose (Zofran Inj/D5W) 54 ml @ 108 mls/hr Q6H PRN IV NAUSEA AND/OR VOMITING Last administered on 04/06/17 10:27; Admin Dose 108 MLS /HR; Start 04/06/17 at 01:00 Metoclopramide HCl 10 mg 10 mg Q6 IV Last administered on 04/07/17 06:02; Admin Dose 10 MG; Start 04/06/17 at 12:00 Potassium Chloride/Dextrose/ Sod Cl (D5-1/2ns + KCl 20 Meq) 1,000 ml @ 100 mls/ hr Q10H IV Last administered on 04/07/17 05:02; Admin Dose 100 MLS/HR; Start 04/06/17 at 15:[address] [employer] Apr 07, 2017 09:39
[2017-04-07] MEDS ORDERED: POTASSIUM PHOSPHATE 10 MEQ in SOD CHLORIDE 0.9% 250 ML IVPB ONE (11:00)
[2017-04-07 13:37] VITALS: BP 126/60; RESP 16
--- NOTE | 2017-04-07 14:12 | PN ---
Date/Time of Note Date/Time of Note DATE: 04/07/17 TIME: 14:09 Assessment/Plan Lines/Catheters IV Catheter Type (from [facility]): Peripheral IV [place] in Place (from [facility]): No Assessment/Plan Assessment/Plan [facility] Progress Note Date of Service: 04/07/2017 Location of Service: [facility] fourth floor Today's Assessment & Plan: Overall stable and appears improved with evidence of slowly resolving postoperative paralytic ileus. Abdomen remains benign. Okay from my standpoint to discontinue NG and start patient on a clear liquid diet with advancement and possible discharge planning for tomorrow. No indications of major postoperative complications or wound problems. No indication for acute surgical intervention. Awaiting further return of bowel function. Explained to the patient and his and answered all questions. Patient and family appeared to understand and agreed with plans. With above assessment, I've recommended the following for today: 1. Continue in-house care 2. DC NG tube and start clear liquid diet 3. If patient tolerates this well by tonight, may have regular dinner and discharge planning for tomorrow a.m. 4. Labs in a.m. 5. Increase activity 6. Incentive spirometry 7. Conversion of antimicrobials to p.o. Thank you again for your great care of this very pleasant patient and wonderful family. If there are any questions, please feel free to call me at [phone]. Nature of presenting problem: High severity Please note that, given the multiple number of diagnoses or management options, the moderate amount and/or complexity of data needed to be reviewed, and I risk of complications and/or morbidity or mortality, this qualifies as high complexity type of decision-making. Disclaimers: 1. Inadvertent spelling and grammatical errors are likely due to electronic health record (EHR)/dictation software used and do not reflect on the quality of delivered patient care. 2. The electronic timestamp recorded on this note does not necessarily reflect the actual date and time of the visit or the service. 3. Portions of this note may have been created through electronic templates and computer algorithms that might bring in information either from the system or from other physicians and providers. Please note that such information may or may not contain errors, the occurrence of which are outside of my control. In general (but not always) this happens either in the beginning or at the end of the note. The portion of the note that I have created are generally done in 1 continuous block of text, flanked at the beginning and at the end by " ", and entered into one field in the EHR. 4. There may be other unanticipated errors in the note that are outside of my control. I can only attest to the portions of the note that I have created. Updated Clinical Summary: A very pleasant 61-year-old gentleman with a few comorbidities, admitted through the emergency department at [facility] on 04/04/2017 with acute appendicitis supported by his history and physical, elevated white blood cell count and CT findings. S/p an otherwise uncomplicated laparoscopic appendectomy [facility] 04/05/17 with findings of perforated appendicitis with feculent peritonitis. Comorbidities: 1. Acute appendicitis, with perforation and presence of feculent peritonitis; s /p an otherwise uncomplicated laparoscopic appendectomy [facility] 04/05/17 with findings of perforated appendicitis with feculent peritonitis 2. BMI 29.2 3. Hypertension 4. Enlarged prostate 5. Fatty infiltration of the liver 5. Descending colon diverticulosis without evidence of diverticulitis 6. Hiatal hernia Subjective: No major events or complaints; reports feeling much better than yesterday with passage of flatus; no major reported abd pain and under control with medications ; no n/v/d; no sob or cp; + activity Objective: Vitals: See below Exam: GENERAL: On exam, the patient was laying in bed and appeared to be comfortable and in no acute distress. ABDOMEN: Soft, minimally tender around the incisions and protuberant with mild distention in addition to it. Incision dressings discontinued and incisions are clean, dry and intact without any evidence of obvious erythema, edema, discharge, or hernia. There are no peritoneal signs or guarding. NG with minimal bilious fluid in the canister. SKIN: Skin appears to be pink and feels warm to touch. NEUROLOGIC: Patient is awake, alert, and follows commands appropriately. Exam/Review of Systems Vital Signs Vitals Vital Signs Date Time Temp Pulse Resp B/P Pulse Ox O2 Delivery O2 Flow Rate FiO2 04/07/17 13:37 98.6 86 16 126/60 95 04/06/17 08:01 2.0 04/05/17 13:31 Nasal Cannula Intake and Output 04/06/17 04/06/17 04/07/17 15:00 23:00 07:00 Intake Total 2120 ml 550 ml 1100 ml Output Total 1910 ml 800 ml Balance 2120 ml -1360 ml 300 ml Results Result Diagram: 04/07/17 0512 04/07/17 0512 LENORA ROSARIO M.D. Apr 07, 2017 14:12
[2017-04-07] MEDS: AMOXICILLIN/CLAV 500 MG TAB PO SCH ×2 (15:48→23:15)
[2017-04-07 19:21] VITALS: BP 134/74; RESP 18
[2017-04-07] MEDS: LISINOPRIL 20 MG TAB PO SCH (20:54)
[2017-04-08 01:40] VITALS: BP 133/68; RESP 16
[2017-04-08 02:00] VITALS: BP 133/68; RESP 16
[2017-04-08 06:19] LABS: BASOPHILS % 0.3 % (0.0-2.0); EOSINOPHILS # 0.3 10^3/ul (0.0-0.5); EOSINOPHILS % 2.4 % (0.0-7.0); HEMATOCRIT 40.1 % (42.0-52.0); HEMOGLOBIN 13.4 g/dl (14.0-18.0); LYMPHOCYTES # 1.4 10^3/ul (0.8-2.9); LYMPHOCYTES % 12.1 % (15.0-51.0); MEAN CORPUSCULAR HEMOGLOBIN 30.5 pg (29.0-33.0); MEAN CORPUSCULAR HGB CONC 33.4 g/dl (32.0-37.0); MEAN CORPUSCULAR VOLUME 91.1 fl (82.0-101.0); MEAN PLATELET VOLUME 10.7 fl (7.4-10.4); MONOCYTES % 8.3 % (0.0-11.0); NEUTROPHIL # 8.7 10^3/ul (1.6-7.5); NEUTROPHILS % 75.8 % (39.0-77.0); PLATELET COUNT 210 10^3/UL (140-415); RED CELL DISTRIBUTION WIDTH 13.2 % (11.5-14.5); WHITE BLOOD COUNT 11.4 10^3/ul (4.8-10.8)
[2017-04-08] MEDS: METOCLOPRAMIDE 10 MG INJ IV SCH ×3 (06:28→17:54)
[2017-04-08 06:32] LABS: CALCIUM 8.9 mg/dl (8.4-10.2)
[2017-04-08 06:34] LABS: CALCIUM 8.6 mg/dl (8.4-10.2); CREATININE 0.76 mg/dl (0.61-1.24)
[2017-04-08 07:27] VITALS: BP 131/63; RESP 16
[2017-04-08] MEDS: FAMOTIDINE 20 MG INJ IV SCH (08:21)
[2017-04-08] MEDS: ASPIRIN (EC) 81 MG TAB PO SCH (08:22)
[2017-04-08] MEDS: LORATADINE 10 MG TAB PO SCH (08:22)
[2017-04-08] MEDS: AMOXICILLIN/CLAV 500 MG TAB PO SCH ×2 (08:22→21:12)
[2017-04-08] MEDS: ENOXAPARIN 40 MG/0.4 ML SYG SC SCH (08:55)
--- NOTE | 2017-04-08 09:38 | PDOCDIS ---
Discharge Instructions CONDITION Patient Condition: Stable HOME CARE INSTRUCTIONS: Diet Instructions: RegularSpecial Diet: Clear Liquid Diet FOLLOW UP/APPOINTMENTS Follow-up Plan 1. Cont regular diet 2. Check labs and d/c home if acceptable 3. F/u with me in a couple of weeks 4. Hydration is very important; needs to continue at home 5. D/c instructions: Please call [phone] if any of fever, nausea, vomiting, discharge from wound , wound redness, increase or sudden pain, blood in stool or vomit, or any other unusual signs or symptoms. Also, please call the same number in a few days to schedule an appointment for your follow up visit with . Patient may remove dressings tomorrow. Showers OK starting tomorrow. No swimming , hot tub or bath for 2 weeks. No lifting more than 25 lbs for 8 weeks. .Follow up with primary care physician in 1 week If you don't have one please let someone know, we can give you resources that may help you pick one. You may also call your insurance company to assign one to you. Review your medication list with your nurse before leaving and if you need new prescriptions please let your nurse know. I may have made changes to your home medications or given you new prescriptions, please let your primary doctor know as well. Stay compliant with your medications and report any side effects to your PCP or pharmacist. Return to the ER if you have any concerns and cannot reach your doctors or call your insurance company, they usually have a nurse that can help you. . Call 911 or go to the nearest emergency room if experiencing loss of consciousness, dizziness, chest pain, shortness of breath, vomiting/abdominal pain, speech difficulties, motor weakness or any unusual symptoms. ALFREDA ARGUETA NP Apr 08, 2017 09:38
[2017-04-08] MEDS ORDERED: AMOX1TAB9 PO (09:45)
--- NOTE | 2017-04-08 09:52 | PN ---
Date/Time of Note Date/Time of Note DATE: 04/08/17 TIME: 09:45 Assessment/Plan VTE Prophylaxis VTE Prophylaxis Intervention: ambulation Lines/Catheters IV C[facility]ter Type (from [facility]): [place] Urinary Cath still in place: No Assessment/Plan Chief Complaint/Hosp Course 1. Acute appendicitis, with perforation and presence of feculent peritonitis. Doing well. -Status post laparoscopic appendectomy on 04/05/2017. -Status post NGt decompression for possible postoperative paralytic ileus. -Continue Reglan,PRN Zofran and morphine for pain. -Encourage IS/Ambulation -Postoperative diet advancement per surgery. 2. Status post sepsis with gram negative staph bacteremia in set#1 likely secondary to #1.Repeat CS negative. -Patient has been switched to Augmentin per surgery (initial culture resistant to Oxacillin/PCN-Per surgery,most likely contamination). Repeat CS negative so far. 3.Enlarged prostate. PSA normal. No urinary retention. -Monitor. 4. Hypertension -Continue home medications. 5. Diverticulosis of descending colon. No evidence of diverticulitis. -Monitor. -Lifestyle changes advised 6. Fatty liver. -Lifestyle changes and weight reduction advised. 7.Hypophosphatemia. Improved. Prophylaxis: Lovenox/PPi Follow-up with surgery recs postoperatively. DC planning once cleared from surgery. patient was seen in collaboration with . Problems: Subjective 24 Hr Interval Summary Free Text/Dictation Sitting up in chair,tolerates diet. NG tube discontinued. With no further abdominal pain or distention. Exam/Review of Systems Vital Signs Vitals Vital Signs Date Time Temp Pulse Resp B/P Pulse Ox O2 Delivery O2 Flow Rate FiO2 04/08/17 07:27 97.5 91 16 131/63 96 04/08/17 00:59 2.0 04/05/17 13:31 Nasal Cannula Intake and Output 04/07/17 04/07/17 04/08/17 15:00 23:00 07:00 Intake Total 50 ml 1052.2727 ml 580 ml Balance 50 ml 1052.2727 ml 580 ml Exam General: Well developed,adequately built, not in any acute distress . HEENT: Normocephalic, Atraumatic, No laceration or hematoma; Eyes: PEERL, Conjunctiva clear, Anicteric sclera Neck: Supple without any lymphadenopathy, nontender, no JVD, no carotid bruits, trachea midline, no thyromegaly Cardiac: S1, S2 auscultated, regular rhythm and rate, no mumurs or gallop Pulmonary: Normal respiratory effort. Chest clear to auscultation bilaterally, no adventitious breath sounds GI: Protuberant abdomen with mild distention-. Laparoscopic incision site with intact dressing. No masses, tenderness, no rebound tenderness or guarding. Bowel sounds not audible on all four quadrants Genitourinary: Deferred Extremities: No cyanosis, clubbing, or edema. Pulses [2+] bilaterally. Full ROM on all four extremities. No focal weakness appreciated. Neurologic: Alert to person, place, time, and situation. Affect appropriate, intact sensation. Skin: Clean,dry, and intact. No ecchymosis, no rashes, or lesions Results Result Diagram: 04/08/1715 04/08/1715 Results 24 hrs Laboratory Tests Test 04/08/17 05:14 04/08/17 05:15 Calcium Level 8.9 8.6 Magnesium Level 2.0 White Blood Count 11.4 H Red Blood Count 4.40 L Hemoglobin 13.4 L Hematocrit 40.1 L Mean Corpuscular Volume 91.1 Mean Corpuscular Hemoglobin 30.5 Mean Corpuscular Hemoglobin Concent 33.4 Red Cell Distribution Width 13.2 Platelet Count 210 Mean Platelet Volume 10.7 H Neutrophils % 75.8 Lymphocytes % 12.1 L Monocytes % 8.3 Eosinophils % 2.4 Basophils % 0.3 Nucleated Red Blood Cells % 0.0 Neutrophils # 8.7 H Lymphocytes # 1.4 Monocytes # 1.0 H Eosinophils # 0.3 Basophils # 0.0 Nucleated Red Blood Cells # 0.0 Sodium Level 141 Potassium Level 4.0 Chloride Level 109 Carbon Dioxide Level 20 L Anion Gap 16 Blood Urea Nitrogen 19 Creatinine 0.76 Glucose Level 117 Medications Medications Current Medications Acetaminophen (Tylenol Tab) 650 mg Q6H PRN PO PAIN LEVEL 1-3 OR FEVER Last administered on 04/04/17t 21:09; Admin Dose 650 MG; Start 04/04/17 at 19:30 Magnesium Hydroxide (Milk Of Mag) 30 ml DAILY PRN PO CONSTIPATION; Start at 19:30 Lorazepam (Ativan) 0.5 mg Q6H PRN IV ANXIETY; Start 04/04/17 at 19:30 Nitroglycerin (Nitroglycerin (Sl Tab) 0.4 Mg) 1 tab Q5M PRN SL ANGINA; Start 04/04/17 at 19:30 Acetaminophen/ Hydrocodone Bitart ([place] (5/325)) 1 tab Q4H PRN PO PAIN LEVEL 4 -7 Last administered on 04/05/17 20:38; Admin Dose 1 TAB; Start 04/05/17 at 11: 30 Acetaminophen/ Hydrocodone Bitart ([place] (5/325)) 2 tab Q4H PRN PO PAIN LEVEL 7 -10; Start 04/05/17 at 11:30 Hydromorphone HCl (Dilaudid) 0.5 mg Q2 PRN IV PAIN Last administered on 08:28; Admin Dose 0.5 MG; Start 04/05/17 at 11:30 Hydromorphone HCl (Dilaudid) 1 mg Q2 PRN IV PAIN; Start 04/05/17 at 11:30 Docusate Sodium (Colace) 100 mg BID PRN PO CONSTIPATION; Start 04/05/17 at 11: 30 Bisacodyl (Dulcolax Supp) 10 mg BID PRN [place] CONSTIPATION; Start 04/05/17 at 11: 30 Sodium Biphosphate/ Sodium Phosphate (Fleet Enema) 133 ml BID PRN [place] CONSTIPATION; Start 04/05/17 at 11:30 Famotidine (Pepcid Iv) 20 mg DAILY IV Last administered on 04/08/17 08:21; Admin Dose 20 MG; Start 04/06/17 at 09:00 Enoxaparin Sodium (Lovenox) 40 mg DAILY SC Last administered on 04/08/17 08: 55; Admin Dose 40 MG; Start 04/06/17 at 09:00 Aspirin (Halfprin) 81 mg DAILY PO Last administered on 04/08/17 08:22; Admin Dose 81 MG; Start 04/06/17 at 09:00 Lisinopril (Zestril) 20 mg QHS PO Last administered on 04/07/17 20:54; Admin Dose 20 MG; Start 04/05/17 at 21:00 Loratadine 10 mg 10 mg DAILY PO Last administered on 04/08/17 08:22; Admin Dose 10 MG; Start 11/10/17 at 09:00 Ondansetron HCl/ Dextrose (Zofran Inj/D5W) 54 ml @ 108 mls/hr Q6H PRN IV NAUSEA AND/OR VOMITING Last administered on 04/06/17 10:27; Admin Dose 108 MLS /HR; Start 04/06/17 at 01:00 Metoclopramide HCl (Reglan) 10 mg Q6 IV Last administered on 04/08/17 06:28; Admin Dose 10 MG; Start 04/06/17 at 12:00 Amoxicillin/ Clavulanate Potassium (Augmentin) 500 mg BID PO Last administered on 04/08/17 08:22; Admin Dose 500 MG; Start 04/07/17 at 15:00 ALFREDA ARGUETA NP Apr 08, 2017 09:52
--- NOTE | 2017-04-08 13:14 | PN ---
Date/Time of Note Date/Time of Note DATE: 04/08/17 TIME: 13:11 Assessment/Plan Lines/Catheters IV Catheter Type (from Nrs): Saline Lock [place] in Place (from Nrs): No Assessment/Plan Assessment/Plan [facility] Progress Note Date of Service: 04/08/2017 Location of Service: [facility] fourth floor Today's Assessment & Plan: Overall stable and continuing to show signs of improvement with evidence of slowly resolving postoperative paralytic ileus. Abdomen remains benign. No indications of major postoperative complications or wound problems. No indication for acute surgical intervention. Awaiting further return of bowel function and normalization of white blood cell count. Explained to the patient (no family in the room) and answered all questions. Patient appeared to understand and agreed with plans. With above assessment, I've recommended the following for today: 1. Continue in-house care 2. Saline lock IV 3. Continue regular diet 4. Labs in a.m. 5. Increase activity 6. Incentive spirometry 7. Possible discharge home tomorrow morning Thank you again for your great care of this very pleasant patient and wonderful family. If there are any questions, please feel free to call me at [phone]. Nature of presenting problem: High severity Please note that, given the multiple number of diagnoses or management options, the moderate amount and/or complexity of data needed to be reviewed, and I risk of complications and/or morbidity or mortality, this qualifies as high complexity type of decision-making. Disclaimers: 1. Inadvertent spelling and grammatical errors are likely due to electronic health record (EHR)/dictation software used and do not reflect on the quality of delivered patient care. 2. The electronic timestamp recorded on this note does not necessarily reflect the actual date and time of the visit or the service. 3. Portions of this note may have been created through electronic templates and computer algorithms that might bring in information either from the system or from other physicians and providers. Please note that such information may or may not contain errors, the occurrence of which are outside of my control. In general (but not always) this happens either in the beginning or at the end of the note. The portion of the note that I have created are generally done in 1 continuous block of text, flanked at the beginning and at the end by " ", and entered into one field in the EHR. 4. There may be other unanticipated errors in the note that are outside of my control. I can only attest to the portions of the note that I have created. Updated Clinical Summary: A very pleasant 61-year-old gentleman with a few comorbidities, admitted through the emergency department at [facility] on 04/04/2017 with acute appendicitis supported by his history and physical, elevated white blood cell count and CT findings. S/p an otherwise uncomplicated laparoscopic appendectomy [facility] 04/05/17 with findings of perforated appendicitis with feculent peritonitis. Comorbidities: 1. Acute appendicitis, with perforation and presence of feculent peritonitis; s /p an otherwise uncomplicated laparoscopic appendectomy [facility] 04/05/17 with findings of perforated appendicitis with feculent peritonitis 2. BMI 29.2 3. Hypertension 4. Enlarged prostate 5. Fatty infiltration of the liver 5. Descending colon diverticulosis without evidence of diverticulitis 6. Hiatal hernia Subjective: No major events or complaints; reports feeling much better than yesterday with passage of flatus and bowel movements; no major reported abd pain and under control with medications; no n/v/d; no sob or cp; + activity Objective: Vitals: See below Exam: GENERAL: On exam, the patient was laying in bed and appeared to be comfortable and in no acute distress. ABDOMEN: Soft, minimally tender around the incisions and protuberant with no distention in addition to it. Incisions are clean, dry and intact without any evidence of obvious erythema, edema, discharge, or hernia. There are no peritoneal signs or guarding. SKIN: Skin appears to be pink and feels warm to touch. NEUROLOGIC: Patient is awake, alert, and follows commands appropriately. Exam/Review of Systems Vital Signs Vitals Vital Signs Date Time Temp Pulse Resp B/P Pulse Ox O2 Delivery O2 Flow Rate FiO2 04/08/17 07:27 97.5 91 16 131/63 96 04/08/17 00:59 2.0 04/05/17 13:31 Nasal Cannula Intake and Output 04/07/17 04/07/17 04/08/17 15:00 23:00 07:00 Intake Total 50 ml 1052.2727 ml 580 ml Balance 50 ml 1052.2727 ml 580 ml Results Result Diagram: 04/08/17 0515 04/08/17 0515 LENORA ROSARIO M.D. Apr 08, 2017 13:14
[2017-04-08 14:00] VITALS: BP 128/67; RESP 14
[2017-04-08 19:18] VITALS: BP 141/68; RESP 18
[2017-04-08] MEDS: LISINOPRIL 20 MG TAB PO SCH (21:12)
[2017-04-09] MEDS: METOCLOPRAMIDE 10 MG INJ IV SCH ×3 (00:21→11:59)
[2017-04-09 00:39] VITALS: BP 121/69; RESP 18
[2017-04-09 06:21] LABS: BASOPHILS % 0.3 % (0.0-2.0); EOSINOPHILS # 0.4 10^3/ul (0.0-0.5); EOSINOPHILS % 2.9 % (0.0-7.0); HEMATOCRIT 41.3 % (42.0-52.0); HEMOGLOBIN 13.5 g/dl (14.0-18.0); LYMPHOCYTES # 2.5 10^3/ul (0.8-2.9); LYMPHOCYTES % 18.9 % (15.0-51.0); MEAN CORPUSCULAR HEMOGLOBIN 29.3 pg (29.0-33.0); MEAN CORPUSCULAR HGB CONC 32.7 g/dl (32.0-37.0); MEAN CORPUSCULAR VOLUME 89.6 fl (82.0-101.0); MEAN PLATELET VOLUME 10.2 fl (7.4-10.4); MONOCYTE # 1.3 10^3/ul (0.3-0.9); MONOCYTES % 9.7 % (0.0-11.0); NEUTROPHIL # 8.8 10^3/ul (1.6-7.5); NEUTROPHILS % 65.7 % (39.0-77.0); PLATELET COUNT 256 10^3/UL (140-415); POSITIVE DIFF @See below; RED BLOOD COUNT 4.61 10^6/ul (4.70-6.10); RED CELL DISTRIBUTION WIDTH 13.4 % (11.5-14.5); WHITE BLOOD COUNT 13.4 10^3/ul (4.8-10.8)
[2017-04-09 07:20] LABS: CALCIUM 8.6 mg/dl (8.4-10.2); CREATININE 0.73 mg/dl (0.61-1.24)
[2017-04-09 07:22] VITALS: BP 138/76; RESP 16
[2017-04-09] MEDS: ASPIRIN (EC) 81 MG TAB PO SCH (08:27)
[2017-04-09] MEDS: AMOXICILLIN/CLAV 500 MG TAB PO SCH (08:27)
[2017-04-09] MEDS: LORATADINE 10 MG TAB PO SCH (08:28)
[2017-04-09] MEDS: ENOXAPARIN 40 MG/0.4 ML SYG SC SCH (08:32)
[2017-04-09] MEDS ORDERED: FAMOTIDINE 20 MG TAB PO SCH (09:00)
[2017-04-09] MEDS ORDERED: FAMO20TA18 PO ×2 (10:35)
[2017-04-09] MEDS ORDERED: METO5TAB58 PO (10:35)
[2017-04-09] MEDS ORDERED: DOCU-144 PO (10:35)
--- NOTE | 2017-04-09 10:39 | PN ---
Date/Time of Note Date/Time of Note DATE: 04/09/17 TIME: 10:37 Assessment/Plan VTE Prophylaxis VTE Prophylaxis Intervention: ambulation Lines/Catheters IV C[facility]ter Type (from [facility]): Saline Lock Urinary Cath still in place: No Assessment/Plan Chief Complaint/Hosp Course 1. Acute appendicitis, with perforation and presence of feculent peritonitis. Doing well. -Status post laparoscopic appendectomy on 04/05/2017. -Status post NGt decompression for possible postoperative paralytic ileus. -Continue Reglan,PRN Zofran and morphine for pain. -Encourage IS/Ambulation -Patient is not tolerating regular diet. 2. Status post sepsis with gram negative staph bacteremia in set#1 likely secondary to #1.Repeat CS negative. -Patient has been switched to Augmentin per surgery (initial culture resistant to Oxacillin/PCN-Per surgery,most likely contamination). Repeat CS negative so far. 3.Enlarged prostate. PSA normal. No urinary retention. -Monitor. 4. Hypertension -Continue home medications. 5. Diverticulosis of descending colon. No evidence of diverticulitis. -Monitor. -Lifestyle changes advised 6. Fatty liver. -Lifestyle changes and weight reduction advised. 7.Hypophosphatemia. Improved. Prophylaxis: Lovenox/PPi Plan: Discharge planning once cleared from surgery standpoint. Patient to follow-up with surgeon in 1 week after discharge. patient was seen in collaboration with . Problems: Subjective 24 Hr Interval Summary Free Text/Dictation Patient with excellent progress clinically. He is tolerating diet and activities well. Patient had normal bowel movements. He did not have any further nausea or vomiting. No abdominal pain. Exam/Review of Systems Vital Signs Vitals Vital Signs Date Time Temp Pulse Resp B/P Pulse Ox O2 Delivery O2 Flow Rate FiO2 04/09/17 07:22 98.5 81 16 138/76 96 04/09/17 01:39 2.0 04/05/17 13:31 Nasal Cannula Intake and Output 04/08/17 04/08/17 04/09/17 14:59 22:59 06:59 Intake Total 2120 ml 400 ml Balance 2120 ml 400 ml Exam General: Well developed,adequately built, not in any acute distress . HEENT: Normocephalic, Atraumatic, No laceration or hematoma; Eyes: PEERL, Conjunctiva clear, Anicteric sclera Neck: Supple without any lymphadenopathy, nontender, no JVD, no carotid bruits, trachea midline, no thyromegaly Cardiac: S1, S2 auscultated, regular rhythm and rate, no mumurs or gallop Pulmonary: Normal respiratory effort. Chest clear to auscultation bilaterally, no adventitious breath sounds GI: Protuberant abdomen with mild distention-. Laparoscopic incision site with intact dressing. No masses, tenderness, no rebound tenderness or guarding. Bowel sounds not audible on all four quadrants Genitourinary: Deferred Extremities: No cyanosis, clubbing, or edema. Pulses [2+] bilaterally. Full ROM on all four extremities. No focal weakness appreciated. Neurologic: Alert to person, place, time, and situation. Affect appropriate, intact sensation. Skin: Clean,dry, and intact. No ecchymosis, no rashes, or lesions Results Result Diagram: 04/09/17 0555 04/09/17 0554 Results 24 hrs Laboratory Tests Test 04/09/17 05:54 04/09/17 05:55 Sodium Level 141 Potassium Level 4.0 Chloride Level 109 Carbon Dioxide Level 21 Anion Gap 15 Blood Urea Nitrogen 16 Creatinine 0.73 Glucose Level 109 Calcium Level 8.6 White Blood Count 13.4 H Red Blood Count 4.61 L Hemoglobin 13.5 L Hematocrit 41.3 L Mean Corpuscular Volume 89.6 Mean Corpuscular Hemoglobin 29.3 Mean Corpuscular Hemoglobin Concent 32.7 Red Cell Distribution Width 13.4 Platelet Count 256 # Mean Platelet Volume 10.2 Neutrophils % 65.7 Lymphocytes % 18.9 Monocytes % 9.7 Eosinophils % 2.9 Basophils % 0.3 Nucleated Red Blood Cells % 0.0 Neutrophils # 8.8 H Lymphocytes # 2.5 Monocytes # 1.3 H Eosinophils # 0.4 Basophils # 0.0 Nucleated Red Blood Cells # 0.0 Medications Medications Current Medications Acetaminophen (Tylenol Tab) 650 mg Q6H PRN PO PAIN LEVEL 1-3 OR FEVER Last administered on 04/04/17t 21:09; Admin Dose 650 MG; Start 04/04/17 at 19:30 Magnesium Hydroxide (Milk Of Mag) 30 ml DAILY PRN PO CONSTIPATION; Start at 19:30 Lorazepam (Ativan) 0.5 mg Q6H PRN IV ANXIETY; Start 04/04/17 at 19:30 Nitroglycerin (Nitroglycerin (Sl Tab) 0.4 Mg) 1 tab Q5M PRN SL ANGINA; Start 04/04/17 at 19:30 Acetaminophen/ Hydrocodone Bitart ([place] (5/325)) 1 tab Q4H PRN PO PAIN LEVEL 4 -7 Last administered on 04/05/17 20:38; Admin Dose 1 TAB; Start 04/05/17 at 11: 30 Acetaminophen/ Hydrocodone Bitart ([place] (5/325)) 2 tab Q4H PRN PO PAIN LEVEL 7 -10; Start 04/05/17 at 11:30 Hydromorphone HCl (Dilaudid) 0.5 mg Q2 PRN IV PAIN Last administered on 08:28; Admin Dose 0.5 MG; Start 04/05/17 at 11:30 Hydromorphone HCl (Dilaudid) 1 mg Q2 PRN IV PAIN; Start 04/05/17 at 11:30 Docusate Sodium (Colace) 100 mg BID PRN PO CONSTIPATION; Start 04/05/17 at 11: 30 Bisacodyl (Dulcolax Supp) 10 mg BID PRN NE CONSTIPATION; Start 04/05/17 at 11: 30 Sodium Biphosphate/ Sodium Phosphate (Fleet Enema) 133 ml BID PRN NE CONSTIPATION; Start 04/05/17 at 11:30 Enoxaparin Sodium (Lovenox) 40 mg DAILY SC Last administered on 04/09/17 08: 32; Admin Dose 40 MG; Start 04/06/17 at 09:00 Aspirin (Halfprin) 81 mg DAILY PO Last administered on 04/09/17 08:27; Admin Dose 81 MG; Start 04/06/17 at 09:00 Lisinopril (Zestril) 20 mg QHS PO Last administered on 04/08/17 21:12; Admin Dose 20 MG; Start 04/05/17 at 21:00 Loratadine 10 mg 10 mg DAILY PO Last administered on 04/09/17 08:28; Admin Dose 10 MG; Start 04/06/17 at 09:00 Ondansetron HCl/ Dextrose (Zofran Inj/D5W) 54 ml @ 108 mls/hr Q6H PRN IV NAUSEA AND/OR VOMITING Last administered on 04/06/17 10:27; Admin Dose 108 MLS /HR; Start 04/06/17 at 01:00 Metoclopramide HCl (Reglan) 10 mg Q6 IV Last administered on 04/09/17 06:01; Admin Dose 10 MG; Start 04/06/17 at 12:00 Amoxicillin/ Clavulanate Potassium (Augmentin) 500 mg BID PO Last administered on 04/09/17 08:27; Admin Dose 500 MG; Start 04/07/17 at 15:00 Famotidine (Pepcid) 20 mg DAILY PO Last administered on 04/09/17 08:27; Admin Dose 20 MG; Start 04/09/17 at 09:00 ALFREDA ARGUETA NP Apr 09, 2017 10:39
--- NOTE | 2017-04-09 12:27 | DS ---
Date/Time of Note Date/Time of Note DATE: 04/09/17 TIME: 12:24 Discharge Summary Admission/Discharge Info Admit Date/Time Apr 04, 2017 at 19:21 Discharge Date/Time Discharge Diagnosis 1. Acute appendicitis, with perforation and presence of feculent peritonitis. Status post Laparoscopic appendectomy on 04/05/2017 2. Possible postoperative paralytic ileus.Resolved. 3. Status post sepsis with gram negative staph bacteremia in set#1 likely secondary to #1.Repeat CS negative. 4. Enlarged prostate. PSA normal. No urinary retention. 5. Hypertension 6. Diverticulosis of descending colon. No evidence of diverticulitis. 7. Fatty liver. Patient Condition: Stable Procedures 04/04/2017. CT abdomen and pelvis. IMPRESSION: 1. Acute appendicitis as described above. 2. Small amount of free fluid in the pelvis and right paracolic gutter. 3. Fatty infiltration of the liver. 4. Descending colon diverticulosis without evidence of diverticulitis. 5. Moderate size hiatal hernia again seen. 04/05/2017. Laparoscopic appendectomy. Acute appendicitis, with perforation and presence of feculent peritonitis Hospital Course This is a 61-year-old male with a past medical history of enlarged prostate, hypertension, descending colon diverticulosis without diverticulitis, hiatal hernia, presented to the emergency room with abdominal pain and fevers. On arrival, he was noted with sepsis with acute appendicitis confirmed with imaging studies. Patient had laparoscopic appendectomy on 04/05/2017 with findings of perforated appendicitis with feculent peritonitis. Patient was continued on broad- spectrum antibiotics. His initial cultures showed coagulase-negative staph with a repeat negative blood culture. Postoperatively, patient showed possible postoperative paralytic ileus for which he had NG tube decompression with large amount of drainage removed. He was continued on Reglan, Zofran, pain medications and antibiotics. His symptoms improved and was then started on a diet which was advanced to regular. Patient had regular bowel movements. His abdomen remained benign. There was no further symptoms of ileus. Sepsis also resolved. At this time, patient is medically stable for discharge with outpatient follow-up per surgery recommendation. He was recommended to continue antibiotics upon discharge. Disposition: Home. Patient verbalized discharge instructions. Approximately 60 minutes was spent in coordinating the discharge on this patient. Patient was seen in collaboration with [facility] Active Scripts Famotidine* (Famotidine*) 20 Mg Tablet, 20 MG PO HS, #30 TAB Prov:FANTASMA ARGUETADYA Eugene. YARD JOCKEY 04/09/17 Metoclopramide* (Reglan*) 5 Mg Tablet, 5 MG PO AC MEALS for 7 Days, #21 TAB Prov:ARGUETAFANTASMAALFREDA V. YARD JOCKEY 04/09/17 Docusate Sodium* (Colace*) 100 Mg Capsule, 100 MG PO BID, #14 CAP Prov:ARGUETA,ALFREDA V. YARD JOCKEY 04/09/17 Famotidine* (Famotidine*) 20 Mg Tablet, 20 MG PO DAILY, #30 TAB Prov:ARGUETAFANTASMAALFREDA V. YARD JOCKEY 04/09/17 Amoxicillin/Potassium Clav (Amox-Clav 500-125 mg Tablet) 500-125 mg Tab, 500 MG PO BID for 7 Days, #14 TAB Prov:ARGUETAFANTASMAALFREDA V. YARD JOCKEY 04/08/17 Ondansetron (Ondansetron Odt) 4 Mg Tab.rapdis, 4 MG PO Q6H Y for NAUSEA AND/OR VOMITING, #10 TAB Prov:JOSR GREEN MD 04/03/17 Hydrocodone/Acetaminophen ([place] 10-325 Tablet) 1 Each Tablet, 1 TAB PO Q6H Y for PAIN, #7 TAB Prov:JOSR GREEN MD 04/03/17 Reported Medications Acetaminophen* (Acetaminophen*) 500 MG Extra Strength Tablet, 500 MG PO Q4H Y for PAIN AND OR ELEVATED TEMP, TAB 04/04/17 Loratadine* (Loratadine*) 10 Mg Tablet, 10 MG PO DAILY for ALLERGIC REACTION, # 30 TAB 04/04/17 Aspirin Ec (Aspir 81) 81 Mg Tablet.dr, 81 MG PO DAILY, #30 TAB 04/04/17 Lisinopril* (Lisinopril*) 20 Mg Tablet, 20 MG PO QHS, #30 TAB 04/04/17 Discontinued Reported Medications Naproxen* (Naproxen*) 500 Mg Tablet, 500 MG PO BID Y for PAIN, TAB 04/04/17 Follow-up Plan 1. Cont regular diet 2. Check labs and d/c home if acceptable 3. F/u with me in a couple of weeks 4. Hydration is very important; needs to continue at home 5. D/c instructions: Please call [phone] if any of fever, nausea, vomiting, discharge from wound , wound redness, increase or sudden pain, blood in stool or vomit, or any other unusual signs or symptoms. Also, please call the same number in a few days to schedule an appointment for your follow up visit with . Patient may remove dressings tomorrow. Showers OK starting tomorrow. No swimming , hot tub or bath for 2 weeks. No lifting more than 25 lbs for 8 weeks. .Follow up with primary care physician in 1 week If you don't have one please let someone know, we can give you resources that may help you pick one. You may also call your insurance company to assign one to you. Review your medication list with your nurse before leaving and if you need new prescriptions please let your nurse know. I may have made changes to your home medications or given you new prescriptions, please let your primary doctor know as well. Stay compliant with your medications and report any side effects to your PCP or pharmacist. Return to the ER if you have any concerns and cannot reach your doctors or call your insurance company, they usually have a nurse that can help you. . Call 911 or go to the nearest emergency room if experiencing loss of consciousness, dizziness, chest pain, shortness of breath, vomiting/abdominal pain, speech difficulties, motor weakness or any unusual symptoms. Primary Care Provider Joey Gong Pending Labs Laboratory Tests Test 04/09/17 05:54 04/09/17 05:55 Sodium Level 141mmol/L (135-144) Potassium Level 4.0mmol/L (3.5-5.1) Chloride Level 109mmol/L (97-110) Carbon Dioxide Level 21mmol/L (21-31) Anion Gap 15 (8-16) Blood Urea Nitrogen 16mg/dl (7-20) Creatinine 0.73mg/dl (0.61-1.24) Glucose Level 109mg/dl (70-220) Calcium Level 8.6mg/dl (8.4-10.2) White Blood Count 13.410^3/ul (4.8-10.8) Red Blood Count 4.6110^6/ul (4.70-6.10) Hemoglobin 13.5g/dl (14.0-18.0) Hematocrit 41.3% (42.0-52.0) Mean Corpuscular Volume 89.6fl (82.0-101.0) Mean Corpuscular Hemoglobin 29.3pg (29.0-33.0) Mean Corpuscular Hemoglobin Concent 32.7g/dl (32.0-37.0) Red Cell Distribution Width 13.4% (11.5-14.5) Platelet Count 73151^3/UL (140-415) Mean Platelet Volume 10.2fl (7.4-10.4) Neutrophils % 65.7% (39.0-77.0) Lymphocytes % 18.9% (15.0-51.0) Monocytes % 9.7% (0.0-11.0) Eosinophils % 2.9% (0.0-7.0) Basophils % 0.3% (0.0-2.0) Nucleated Red Blood Cells % 0.0/100WBC (0.0-0.0) Neutrophils # 8.810^3/ul (1.6-7.5) Lymphocytes # 2.510^3/ul (0.8-2.9) Monocytes # 1.310^3/ul (0.3-0.9) Eosinophils # 0.410^3/ul (0.0-0.5) Basophils # 0.010^3/ul (0.0-0.1) Nucleated Red Blood Cells # 0.010^3/ul (0.0-0.0) ALFREDA ARGUETA V. YARD JOCKEY Apr 09, 2017 12:27
--- NOTE | 2017-04-09 14:13 | PN ---
Date/Time of Note Date/Time of Note DATE: 04/09/17 TIME: 14:10 Assessment/Plan Lines/Catheters IV Catheter Type (from Nrs): Saline Lock Machado in Place (from Nrs): No Assessment/Plan Assessment/Plan [facility] Progress Note Date of Service: 04/09/2017 Location of Service: [facility] fourth floor Today's Assessment & Plan: Overall stable and sig improved. Abdomen remains benign. No indications of major postoperative complications or wound problems. No indication for acute surgical intervention. WBC noted, but clinically doing so well that ok to d/c from my standpoint. Explained to the patient (no family in the room) and answered all questions. Patient appeared to understand and agreed with plans. With above assessment, I've recommended the following for today: 1. D/c home 2. F/u with PCP in 1-2 weeks 3. F/u with us in 2-3 weeks 4. Continue oral antimicrobial therapy for another 3-4 days 5. Please include the following in d/c instructions: "Please call [phone] if any of fever, nausea, vomiting, discharge from wound, wound redness, increase or sudden pain, blood in stool or vomit, or any other unusual signs or symptoms. Also, please call the same number in a few days to schedule an appointment for your follow up visit. Patient may remove dressings tomorrow. Showers OK starting tomorrow. No swimming , hot tub or bath for 2 weeks. No lifting more than 25 lbs for 8 weeks." Thank you again for your great care of this very pleasant patient and wonderful family. If there are any questions, please feel free to call me at [phone]. Nature of presenting problem: High severity Please note that, given the multiple number of diagnoses or management options, the moderate amount and/or complexity of data needed to be reviewed, and I risk of complications and/or morbidity or mortality, this qualifies as high complexity type of decision-making. Disclaimers: 1. Inadvertent spelling and grammatical errors are likely due to electronic health record (EHR)/dictation software used and do not reflect on the quality of delivered patient care. 2. The electronic timestamp recorded on this note does not necessarily reflect the actual date and time of the visit or the service. 3. Portions of this note may have been created through electronic templates and computer algorithms that might bring in information either from the system or from other physicians and providers. Please note that such information may or may not contain errors, the occurrence of which are outside of my control. In general (but not always) this happens either in the beginning or at the end of the note. The portion of the note that I have created are generally done in 1 continuous block of text, flanked at the beginning and at the end by " ", and entered into one field in the EHR. 4. There may be other unanticipated errors in the note that are outside of my control. I can only attest to the portions of the note that I have created. Updated Clinical Summary: A very pleasant 61-year-old gentleman with a few comorbidities, admitted through the emergency department at [facility] on 04/04/2017 with acute appendicitis supported by his history and physical, elevated white blood cell count and CT findings. S/p an otherwise uncomplicated laparoscopic appendectomy [facility] 04/05/17 with findings of perforated appendicitis with feculent peritonitis. Comorbidities: 1. Acute appendicitis, with perforation and presence of feculent peritonitis; s /p an otherwise uncomplicated laparoscopic appendectomy [facility] 04/05/17 with findings of perforated appendicitis with feculent peritonitis 2. BMI 29.2 3. Hypertension 4. Enlarged prostate 5. Fatty infiltration of the liver 5. Descending colon diverticulosis without evidence of diverticulitis 6. Hiatal hernia Subjective: No major events or complaints; reports feeling well with passage of flatus and bowel movements (solid and diarrhea combined); no major reported abd pain and under control with medications; no n/v/d; no sob or cp; + activity Objective: Vitals: See below Exam: GENERAL: On exam, the patient was laying in bed and appeared to be comfortable and in no acute distress. ABDOMEN: Soft, minimally tender around the incisions and protuberant with no distention in addition to it. Incisions are clean, dry and intact without any evidence of obvious erythema, edema, discharge, or hernia. There are no peritoneal signs or guarding. SKIN: Skin appears to be pink and feels warm to touch. NEUROLOGIC: Patient is awake, alert, and follows commands appropriately. Exam/Review of Systems Vital Signs Vitals Vital Signs Date Time Temp Pulse Resp B/P Pulse Ox O2 Delivery O2 Flow Rate FiO2 04/09/17 07:22 98.5 81 16 138/76 96 04/09/17 01:39 2.0 04/05/17 13:31 Nasal Cannula Intake and Output 04/08/17 04/08/17 04/09/17 15:00 23:00 07:00 Intake Total 2120 ml 400 ml Balance 2120 ml 400 ml Results Result Diagram: 04/09/17 0555 04/09/17 0554 LENORA ROSARIO M.D. Apr 09, 2017 14:13
== END 2017-04-09 14:35 | disposition home or self-care (01) | DRG 853 ==
LOC: E/R 15:52 → MS2 19:21
PROVIDERS: ADMIT Hospitalist; ATTEND Hospitalist
PROC: 0DTJ4ZZ Resection of Appendix, Percutaneous Endoscopic Approach (ICD-10-PCS; principal; 2017-04-05 09:00)
DX: A41.9 Sepsis, unspecified organism (principal); K35.2 Acute appendicitis with generalized peritonitis; K76.0 Fatty (change of) liver, not elsewhere classified; E83.39 Other disorders of phosphorus metabolism; K56.0 Paralytic ileus; R65.20 Severe sepsis without septic shock; I10 Essential (primary) hypertension; F17.210 Nicotine dependence, cigarettes, uncomplicated; N40.0 Benign prostatic hyperplasia without lower urinary tract symptoms; K57.30 Diverticulosis of large intestine without perforation or abscess without bleeding; K44.9 Diaphragmatic hernia without obstruction or gangrene
CPT/HCPCS: 36415; 71010; 74177; 80048; 80053; 80061; 82310; 83036; 83605; 83735; 83880; 84100; 84153; 84154; 84439; 84443; 84484; 85025; 85610; 85730; 87040; 88304; 96365; 96366; 96375; 96376; J1100; J1170; J1644; J1650; J1956; J2060; J2250; J2270; J2405; J2543; J2710; J2765; J3010; J3370; J3480; J7030; J7040; J7042; J7050; Q9967

== ENCOUNTER 2017-05-02 15:48 | Outpatient (CLI) | payer SELFPAY ==
[~2017-05-02] VITALS: Ht 167.6 cm; Wt 78.6 kg
[~2017-05-02 15:48] MED LIST changes: +ACET-141 PO; +AMOX1TAB9 PO; +ASPI-535 PO; +DOCU-144 PO; +FAMO20TA18 PO; +LISI20TA11 PO; +LORA10TA3 PO; +METO5TAB58 PO
[2017-05-02 15:59] VITALS: Ht 167.6 cm; Wt 78.6 kg
[2017-05-02 16:00] VITALS: BP 136/63; PULSE 78; RESP 18
--- NOTE | 2017-05-02 16:54 | PN ---
Date/Time of Note Date/Time of Note DATE: 05/02/17 TIME: 16:38 Assessment/Plan Assessment/Plan Assessment/Plan [facility] Progress Note Date of Service: 05/02/2017 Location of Service: [facility] fourth floor Today's Assessment & Plan: Overall stable and improved. Abdomen remains benign. No indications of major postoperative complications or wound problems. No indication for acute surgical intervention. Some pain with defecation and no colonoscopy in the past. Can benefit from GI consultation and surveillance colonoscopy. Explained to the patient (no family in the room) and answered all questions. Patient appeared to understand and agreed with plans. With above assessment, I've recommended the following for today: 1. F/u with PCP 2. GI consultation for colonoscopy 3. F/u with us prn 4. Lifestyle changes with goal of reducing BMI to between 18 and 24 Thank you again for your great care of this very pleasant patient and wonderful family. If there are any questions, please feel free to call me at [phone]. Nature of presenting problem: High severity Please note that, given the multiple number of diagnoses or management options, the moderate amount and/or complexity of data needed to be reviewed, and I risk of complications and/or morbidity or mortality, this qualifies as high complexity type of decision-making. Disclaimers: 1. Inadvertent spelling and grammatical errors are likely due to electronic health record (EHR)/dictation software used and do not reflect on the quality of delivered patient care. 2. The electronic timestamp recorded on this note does not necessarily reflect the actual date and time of the visit or the service. 3. Portions of this note may have been created through electronic templates and computer algorithms that might bring in information either from the system or from other physicians and providers. Please note that such information may or may not contain errors, the occurrence of which are outside of my control. In general (but not always) this happens either in the beginning or at the end of the note. The portion of the note that I have created are generally done in 1 continuous block of text, flanked at the beginning and at the end by " ", and entered into one field in the EHR. 4. There may be other unanticipated errors in the note that are outside of my control. I can only attest to the portions of the note that I have created. Updated Clinical Summary: A very pleasant 61-year-old gentleman with a few comorbidities, admitted through the emergency department at [facility] on 04/04/2017 with acute appendicitis supported by his history and physical, elevated white blood cell count and CT findings. S/p an otherwise uncomplicated laparoscopic appendectomy [facility] 04/05/17 with findings of perforated appendicitis with feculent peritonitis. Comorbidities: 1. Acute appendicitis, with perforation and presence of feculent peritonitis; s /p an otherwise uncomplicated laparoscopic appendectomy [facility] 04/05/17 with findings of perforated appendicitis with feculent peritonitis 2. BMI 29.2 3. Hypertension 4. Enlarged prostate 5. Fatty infiltration of the liver 5. Descending colon diverticulosis without evidence of diverticulitis 6. Hiatal hernia Subjective: No major events or complaints; reports feeling well with passage of flatus and bowel movements (solid and diarrhea combined); no major reported abd pain and under control with medications; no n/v/d; no sob or cp; + activity Objective: Vitals: See below Exam: GENERAL: On exam, the patient was laying in bed and appeared to be comfortable and in no acute distress. ABDOMEN: Soft, nontender and protuberant but nondistended. Incisions are clean , dry and intact without any evidence of obvious erythema, edema, discharge, or hernia. There are no peritoneal signs or guarding. SKIN: Skin appears to be pink and feels warm to touch. NEUROLOGIC: Patient is awake, alert, and follows commands appropriately. Exam/Review of Systems Vital Signs Vitals Vital Signs Date Time Temp Pulse Resp B/P Pulse Ox O2 Delivery O2 Flow Rate FiO2 05/02/17 16:00 98.3 78 18 136/63 99 Room Air LENORA ROSARIO M.D. May 02, 2017 16:49
== END 2017-05-02 17:00 | disposition home or self-care (01) ==
LOC: HPC 15:48
PROVIDERS: ATTEND Transplant Surgery
DX: Z09 Encounter for follow-up examination after completed treatment for conditions other than malignant neoplasm (principal); K35.80 Unspecified acute appendicitis; I10 Essential (primary) hypertension; N40.0 Benign prostatic hyperplasia without lower urinary tract symptoms; K76.0 Fatty (change of) liver, not elsewhere classified; K57.90 Diverticulosis of intestine, part unspecified, without perforation or abscess without bleeding; K44.9 Diaphragmatic hernia without obstruction or gangrene
CPT/HCPCS: G0463